=== PATIENT | female | born 1985 | race Hispanic/Latino ===

== ENCOUNTER 2016-07-06 20:00 | Observation (INO) | payer MEDICAID ==
[2016-07-06 20:06] VITALS: O2SAT 100
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
[2016-07-07 01:12] VITALS: BP 128/64; PULSE 99; RESP 18; TEMP 98.1
== END 2016-07-06 23:24 | disposition home or self-care (01) ==
LOC: H.ER 20:00 → H.EROBSV 20:23
PROVIDERS: ADMIT Emergency Medicine; ATTEND Emergency Medicine
DX: F19.10 Other psychoactive substance abuse, uncomplicated (principal)

== ENCOUNTER 2016-07-21 04:31 | Emergency (ER) | payer MEDICAID ==
[2016-07-21 04:42] VITALS: BP 136/88; PULSE 118; RESP 18; TEMP 98.1; O2SAT 100
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
== END 2016-07-21 05:48 | disposition home or self-care (01) ==
LOC: H.ER 04:31
DX: F16.10 Hallucinogen abuse, uncomplicated (principal)

== ENCOUNTER 2016-07-26 14:29 | Observation (INO) | payer MEDICAID ==
[2016-07-26 14:34] VITALS: TEMP 98
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
[2016-07-26 16:27] LABS: HEMATOCRIT 43.8 % (34.0-47.0); MEAN CORPUSCULAR HEMOGLOBIN 28.6 pg (27.0-31.0); MEAN CORPUSCULAR HGB CONC 32.5 g/dL (33.0-37.0); RED CELL DISTRIBUTION WIDTH 13.7 % (11.5-14.5); WHITE BLOOD COUNT 11.6 K/uL (4.8-10.8)
[2016-07-26 16:36] VITALS: BP 140/90; RESP 20
[2016-07-26 16:38] VITALS: PULSE 104
[2016-07-26 16:56] LABS: ALB/GLOB RATIO 1.2 (1.0-2.1); ALCOHOL SERUM < 10 mg/dl (0-10); ALKALINE PHOSPHATASE 76 U/L (38-126); ALT/SGPT 18 U/L (9-52); AST/SGOT 34 U/L (14-36); BILIRUBIN,TOTAL 0.6 mg/dl (0.2-1.3); BLOOD UREA NITROGEN 13 mg/dl (7-17); CARBON DIOXIDE 18 mmol/L (22-30); CHLORIDE 111 mmol/L (98-107); GFR AFRICAN-AMERICAN > 60; GLUCOSE,RANDOM 124 mg/dL (65-105); SODIUM 152 mmol/l (132-148); TOTAL PROTEIN 8.7 G/DL (6.3-8.2)
[2016-07-26 17:11] LABS: RBC URINE 3 /hpf (0-3); URINE BACTERIA MANY (<OCC); URINE BILIRUBIN NEGATIVE (NEGATIVE); URINE BLOOD NEGATIVE (NEGATIVE); URINE COLOR AMBER (YELLOW); URINE GLUCOSE (UA) NEG (Normal); URINE KETONE 80 mg/dL (NEGATIVE); URINE LEUKOCYTE ESTERASE NEG Leu/uL (Negative); URINE PROTEIN 100 mg/dL (NEGATIVE); WBC URINE 1 /hpf (0-5)
[2016-07-26 19:50] VITALS: O2SAT 99
--- NOTE | 2016-07-26 20:17 | ED PDOC ---
- Laboratory Results Result Diagrams: 07/26/16 16:00 07/26/16 16:45 - ECG O2 Sat by Pulse Oximetry: 99 - Progress ED Course And Treament: Case was signed out to display card writer from [employer] [facility] pending crisis eval. Medical Decision Making Medical Decision Making: As per crisis counselor and psychiatrist supervisor sample preparation, Dr. Urena, patient does not meet criteria for admission and is stable for discharge. Disposition - Clinical Impression Clinical Impression: Substance abuse, continuous - POA Present On Arrival: None - Disposition Disposition: Routine/Home Disposition Time: 20:58 Condition: FAIR
== END 2016-07-26 21:30 | disposition home or self-care (01) ==
LOC: H.ER 14:29 → H.EROBSV 15:53
PROVIDERS: ADMIT Emergency Medicine; ATTEND Emergency Medicine
DX: F19.10 Other psychoactive substance abuse, uncomplicated (principal); Z00.8 Encounter for other general examination

== ENCOUNTER 2016-07-31 21:58 | Observation (INO) | payer MEDICAID ==
[2016-07-31] MEDS ORDERED: DiphenhydrAMINE 50 mg/ml Inj ONE (22:00)
[2016-07-31] MEDS ORDERED: Sodium Chloride 0.9% 1,000 ML IV STA (22:05)
[2016-07-31] MEDS ORDERED: DiphenhydrAMINE 50 mg/ml Inj IM STA (22:05)
--- NOTE | 2016-07-31 22:54 | ED PDOC ---
HPI: Psych/Substance Abuse Time Seen by Provider: 07/31/16 22:00 Chief Complaint (Nursing): Psychiatric Evaluation Chief Complaint (Provider): Psychiatric Evaluation ED Caveat: Altered Mental Status (secondary to possible substance abuse), Uncooperative History Per: EMS History/Exam Limitations: clinical condition Involuntary Hold By: None Additional Complaint(s): Tri Parker is a 30 year old female, with a past medical history inclusive of previous substance abuse, who presents to the ED on 07/31/16, via EMS, for a psychiatric evaluation. Per EMS, they had been called to the scene by the patient's father, who not only reported that the patient had not left the house in 4 days (save to go outside to smoke cigarettes), but that he had also suspected her to be using PCP. Upon their arrival, patient was combative on scene and arrives to the ED in restraints. HPI and ROS are limited secondary to patient's clinical/uncooperative condition. Past Medical History Reviewed: Historical Data, Nursing Documentation, Vital Signs Vital Signs: Last Vital Signs Temp Pulse 100 H 07/31/16 22:01 Resp 20 07/31/16 22:01 BP 141/87 07/31/16 22:01 Pulse Ox 97 07/31/16 22:01 - Medical History PMH: Anxiety Denies: Diabetes, Hepatitis, HIV, HTN, Chronic Kidney Disease, Seizures, Sexually Transmitted Disease - Surgical History Surgical History: No Surg Hx - Family History Family History: States: Unknown Family Hx - Living Arrangements Living Arrangements: With Family - Social History Alcohol: Other (yes) Drugs: Methamphetamine (PCP) - Home Medications Home Medications: Ambulatory Orders Medication Instructions Recorded Buspirone HCl 10 mg PO BID 03/19/14 Nitrofurantoin Macrocrystals 100 mg PO BID #9 cap 06/20/15 [Macrobid] Amoxicillin/Clavulanate [Augmentin 1 tab PO BID #14 tab 12/20/15 875 MG-125 MG] - Allergies Allergies/Adverse Reactions: Allergies Allergy/AdvReac Type Severity Reaction Status Date / Time acetaminophen [From Tylenol] Allergy RASH Verified 08/16/15 22:49 Review of Systems Review Of Systems: ROS cannot be obtained secondary to pt's inabilty to answer questions. Psych: Positive for: Other (possible substance abuse) Physical Exam - Reviewed Nursing Documentation Reviewed: Yes Vital Signs Reviewed: Yes - Physical Exam Appears: Positive for: Non-toxic, No Acute Distress Head Exam: Positive for: ATRAUMATIC, NORMOCEPHALIC Skin: Positive for: Normal Color, Warm, Dry Eye Exam: Positive for: Nystagmus (horizontal b/l). Negative for: PERRL ( pupils are dilated b/l) Cardiovascular/Chest: Positive for: Regular Rate, Rhythm. Negative for: Murmur Respiratory: Positive for: Normal Breath Sounds. Negative for: Respiratory Distress Back: Positive for: Normal Inspection Extremity: Positive for: Normal ROM (moving all extremites). Negative for: Deformity (no signs of injury/trauma) Neurologic/Psych: Positive for: Alert, Mood/Affect (patient is combative and not answering questions) - Laboratory Results Result Diagrams: 07/31/16 22:45 07/31/16 22:45 - ECG O2 Sat by Pulse Oximetry: 97 (RA) Pulse Ox Interpretation: Normal Medical Decision Making Medical Decision Makin:00 Initial Impression: drug use As patient presents a danger to both herself and ED staff secondary to her current clinical condition, she will be placed in 4 point restraints and be given both Ativan 2mg IM and Haldol 5mg IM for relief of acute agitation. Initial Plan: * Labs * Alcohol Serum * Acetaminophen * Salicylate * Upreg * Urinalysis * Urine Drug Screen * IV NS 1000ml at 1000mls/hr * Benadryl 50mg IM * 1:1 Observation * Reevaluation 22:16 Patient will be placed within ED observation secondary to both clinical condition and medications administered upon arrival. Pending clinical sobriety, Crisis Evaluation, reevaluation and eventual disposition. Pt. is awake and alert , A&O x 3 w/ steady gait. 0634: Patient cleared by Dr. Urena for discharge with Dx of substance induced mood disorder. Return precautions given. Scribe Attestation: Documented by Catherine Timony, acting as a scribe for Francisco Chandler MD. Provider Scribe Attestation: All medical record entries made by the Scribe were at my direction and personally dictated by me. I have reviewed the chart and agree that the record accurately reflects my personal performance of the history, physical exam, medical decision making, and the department course for this patient. I have also personally directed, reviewed, and agree with the discharge instructions and disposition. ED OBSERVATION Date of observation admission: 07/31/16 Time of observation admission: 22:16 - Observation admission statement Patient is being placed in observation because:: Secondary to clinical condition and medications administered upon arrival in ED. - Goals of Observation Goals of observation are:: Pending clinical sobriety, Crisis Evaluation, reevaluation and eventual disposition. Disposition - Clinical Impression Clinical Impression: Substance induced mood disorder - Patient ED Disposition Is Patient to be Admitted: No - Disposition Disposition: Routine/Home Disposition Time: 22:16 Condition: IMPROVED
[2016-07-31 22:58] LABS: BASO % 0.4 % (0.0-2.0); EOS % 0.5 % (0.0-4.0); HEMATOCRIT 43.2 % (34.0-47.0); LYMPH # 1.7 K/uL (1.0-4.3); LYMPH % 23.4 % (20.0-40.0); MEAN CELL VOLUME 87.2 fl (81.0-99.0); MEAN CORPUSCULAR HEMOGLOBIN 28.6 pg (27.0-31.0); MEAN CORPUSCULAR HGB CONC 32.8 g/dL (33.0-37.0); MONO # 0.5 K/uL (0.0-0.8); MONO % 7.1 % (0.0-10.0); NEUT # 5.1 K/uL (1.8-7.0); NEUT % 68.6 % (50.0-75.0); NRBC % 0.1 % (0.0-0.0); RED CELL DISTRIBUTION WIDTH 13.5 % (11.5-14.5); WHITE BLOOD COUNT 7.4 K/uL (4.8-10.8)
[2016-07-31 23:08] LABS: ALCOHOL SERUM < 10 mg/dl (0-10); BLOOD UREA NITROGEN 11 mg/dl (7-17); CALCIUM 9.5 mg/dL (8.4-10.2); CARBON DIOXIDE 29 mmol/L (22-30); CHLORIDE 102 mmol/L (98-107); GFR AFRICAN-AMERICAN > 60; GLUCOSE,RANDOM 96 mg/dL (65-105); POTASSIUM 4.3 MMOL/L (3.6-5.0); SODIUM 144 mmol/l (132-148)
[2016-08-01 01:13] LABS: RBC URINE 2 /hpf (0-3); URINE BACTERIA MANY (<OCC); URINE BILIRUBIN NEGATIVE (NEGATIVE); URINE BLOOD NEGATIVE (NEGATIVE); URINE COLOR YELLOW (YELLOW); URINE GLUCOSE (UA) NEG (Normal); URINE KETONE 20 mg/dL (NEGATIVE); URINE LEUKOCYTE ESTERASE NEG Leu/uL (Negative); URINE PROTEIN NEGATIVE (NEGATIVE); WBC URINE 3 /hpf (0-5)
[2016-08-01 04:00] VITALS: RESP 18; TEMP 98.2
[2016-08-01 07:25] VITALS: BP 135/89; PULSE 79; O2SAT 98
== END 2016-08-01 07:30 | disposition home or self-care (01) ==
LOC: H.ER 21:58 → H.EROBSV 22:16
PROVIDERS: ADMIT Emergency Medicine; ATTEND Emergency Medicine
DX: F19.14 Other psychoactive substance abuse with psychoactive substance-induced mood disorder (principal); F41.9 Anxiety disorder, unspecified; Z78.1 Physical restraint status; F17.210 Nicotine dependence, cigarettes, uncomplicated; Z88.6 Allergy status to analgesic agent

== ENCOUNTER 2016-11-16 23:33 | Emergency (ER) | payer MEDICAID ==
[2016-11-16 23:37] VITALS: BP 144/86; PULSE 118; RESP 18; TEMP 98.9; O2SAT 99
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
== END 2016-11-17 00:49 | disposition home or self-care (01) ==
LOC: H.ER 23:33
DX: S09.90XA Unspecified injury of head, initial encounter (principal); X99.0XXA Assault by sharp glass, initial encounter; Y92.89 Other specified places as the place of occurrence of the external cause; F41.9 Anxiety disorder, unspecified

== ENCOUNTER 2016-12-01 12:10 | Emergency (ER) | payer MEDICAID ==
[2016-12-01 12:19] VITALS: BP 133/83; PULSE 105; RESP 20; TEMP 98; O2SAT 98
--- NOTE | 2016-12-01 12:33 | ED PDOC ---
HPI: CCC, URI, Sore Throat Time Seen by Provider: 12/01/16 12:19 Chief Complaint (Nursing): ENT Problem Chief Complaint (Provider): sore throat History Per: Patient Past Medical History Vital Signs: Last Vital Signs Temp 98 F 12/01/16 12:17 Pulse 105 H 12/01/16 12:17 Resp 20 12/01/16 12:17 BP 133/83 12/01/16 12:17 Pulse Ox 98 12/01/16 12:17 - Medical History PMH: Anxiety Denies: Diabetes, Hepatitis, HIV, HTN, Chronic Kidney Disease, Seizures, Sexually Transmitted Disease - Family History Family History: States: Unknown Family Hx - Home Medications Home Medications: Ambulatory Orders Medication Instructions Recorded Buspirone HCl 10 mg PO BID 03/19/14 Nitrofurantoin Macrocrystals 100 mg PO BID #9 cap 06/20/15 [Macrobid] Amoxicillin/Clavulanate [Augmentin 1 tab PO BID #14 tab 12/20/15 875 MG-125 MG] Azithromycin [Zithromax] 250 mg PO DAILY #6 tab 12/01/16 Ibuprofen [Motrin] 600 mg PO Q6 PRN #15 tab 12/01/16 - Allergies Allergies/Adverse Reactions: Allergies Allergy/AdvReac Type Severity Reaction Status Date / Time acetaminophen [From Tylenol] Allergy RASH Verified 12/01/16 12:19 - ECG O2 Sat by Pulse Oximetry: 98 Disposition - Clinical Impression Clinical Impression: Pharyngitis - Patient ED Disposition Is Patient to be Admitted: No Counseled Patient/Family Regarding: Diagnosis, Need For Followup, Rx Given - Disposition Referrals: [facility] [Outside] Disposition: Routine/Home Disposition Time: 12:30 Condition: STABLE Additional Instructions: Take rx meds as directed. Follow up with clinic in 2-3 days. Prescriptions: Azithromycin [Zithromax] 250 mg PO DAILY #6 tab Ibuprofen [Motrin] 600 mg PO Q6 PRN #15 tab PRN Reason: Pain, Moderate (4-7) Instructions: Pharyngitis (ED) Forms: [employer] (Japanese)
--- NOTE | 2016-12-01 12:35 | ED PDOC ---
HPI: CCC, URI, Sore Throat Time Seen by Provider: 12/01/16 12:19 Chief Complaint (Nursing): ENT Problem Chief Complaint (Provider): Throat pain History Per: Patient History/Exam Limitations: no limitations Onset/Duration Of Symptoms: Days (x2) Current Symptoms Are (Timing): Still Present Additional Complaint(s): Tri Parker is a 30 year old female who presents to the emergency department with a complaint of throat pain ongoing for 2 days. Denied any fever , chills, or sick contacts. PMD: [facility] Past Medical History Reviewed: Historical Data, Nursing Documentation, Vital Signs Vital Signs: Last Vital Signs Temp 98 F 12/01/16 12:17 Pulse 105 H 12/01/16 12:17 Resp 20 12/01/16 12:17 BP 133/83 12/01/16 12:17 Pulse Ox 98 12/01/16 12:40 - Medical History PMH: Anxiety - Surgical History Surgical History: No Surg Hx - Family History Family History: States: No Known Family Hx - Living Arrangements Living Arrangements: With Family - Social History Current smoker - smoking cessation education provided: Yes Alcohol: Occasional Drugs: Other (PCP) - Home Medications Home Medications: Ambulatory Orders Medication Instructions Recorded Buspirone HCl 10 mg PO BID 03/19/14 Nitrofurantoin Macrocrystals 100 mg PO BID #9 cap 06/20/15 [Macrobid] Amoxicillin/Clavulanate [Augmentin 1 tab PO BID #14 tab 12/20/15 875 MG-125 MG] Azithromycin [Zithromax] 250 mg PO DAILY #6 tab 12/01/16 Ibuprofen [Motrin] 600 mg PO Q6 PRN #15 tab 12/01/16 - Allergies Allergies/Adverse Reactions: Allergies Allergy/AdvReac Type Severity Reaction Status Date / Time acetaminophen [From Tylenol] Allergy RASH Verified 12/01/16 12:19 Review of Systems ROS Statement: Except As Marked, All Systems Reviewed And Found Negative Constitutional: Negative for: Fever, Chills ENT: Positive for: Throat Pain, Throat Swelling Respiratory: Negative for: Cough Gastrointestinal: Negative for: Vomiting Neurological: Negative for: Headache, Dizziness Physical Exam - Reviewed Nursing Documentation Reviewed: Yes Vital Signs Reviewed: Yes - Physical Exam Appears: Positive for: Well, Non-toxic, No Acute Distress Head Exam: Positive for: ATRAUMATIC, NORMAL INSPECTION, NORMOCEPHALIC Skin: Positive for: Normal Color ENT: Positive for: TM Is/Are (normal bilaterally), Pharyngeal Erythema, Tonsillar Exudate (scant bilaterally), Tonsillar Swelling (bilateral). Negative for: Normal ENT Inspection Cardiovascular/Chest: Positive for: Regular Rate, Rhythm Respiratory: Positive for: Normal Breath Sounds. Negative for: Respiratory Distress Extremity: Positive for: Normal ROM Neurologic/Psych: Positive for: Alert, net solutions architect II-XII, Oriented - ECG O2 Sat by Pulse Oximetry: 98 (RA) Pulse Ox Interpretation: Normal Medical Decision Making Medical Decision Making: Initial Impression: Pharyngitis Plan: Treat empirically given presentation, rx motrin and zithromax Time: 1230 --Upon provider evaluation, patient is medically stable and requires no further treatment in the ED at this time. Patient will be discharged home with Rx for Zithromax 250mg and Motrin 600mg. Counseling was provided and all questions were answered regarding diagnosis and need for follow up with [facility]. There is agreement to discharge plan. Return if symptoms persist or worsen. Clinical Impression: Pharyngitis Scribe Attestation: Documented by Kelsi Welch, acting as a scribe for Sybil Mckeon PA-C. Provider Scribe Attestation: All medical record entries made by the Scribe were at my direction and personally dictated by me. I have reviewed the chart and agree that the record accurately reflects my personal performance of the history, physical exam, medical decision making, and the department course for this patient. I have also personally directed, reviewed, and agree with the discharge instructions and disposition. Disposition - Clinical Impression Clinical Impression: Pharyngitis - Patient ED Disposition Is Patient to be Admitted: No Doctor Will See Patient In The: Office Counseled Patient/Family Regarding: Diagnosis, Rx Given - Disposition Referrals: [facility] [Outside] Disposition: Routine/Home Disposition Time: 12:30 Condition: STABLE Additional Instructions: Take rx meds as directed. Follow up with clinic in 2-3 days. Prescriptions: Azithromycin [Zithromax] 250 mg PO DAILY #6 tab Ibuprofen [Motrin] 600 mg PO Q6 PRN #15 tab PRN Reason: Pain, Moderate (4-7) Instructions: Pharyngitis (ED) Forms: [employer] (Italian)
== END 2016-12-01 12:43 | disposition home or self-care (01) ==
LOC: H.ER 12:10
DX: J02.9 Acute pharyngitis, unspecified (principal)

== ENCOUNTER 2016-12-18 10:46 | Observation (INO) | payer MEDICAID ==
[2016-12-18 12:06] LABS: BASO % 0.3 % (0.0-2.0); EOS # 0.1 K/uL (0.0-0.7); EOS % 0.6 % (0.0-4.0); HEMATOCRIT 45.1 % (34.0-47.0); LYMPH # 1.4 K/uL (1.0-4.3); LYMPH % 9.4 % (20.0-40.0); MEAN CELL VOLUME 88.8 fl (81.0-99.0); MEAN CORPUSCULAR HEMOGLOBIN 28.9 pg (27.0-31.0); MEAN CORPUSCULAR HGB CONC 32.5 g/dL (33.0-37.0); MEAN PLATELET VOLUME 8.4 fl (7.2-11.7); MONO # 0.8 K/uL (0.0-0.8); MONO % 5.6 % (0.0-10.0); NEUT # 12.2 K/uL (1.8-7.0); NEUT % 84.1 % (50.0-75.0); PLATELET COUNT 245 K/uL (130-400); RED CELL DISTRIBUTION WIDTH 13.8 % (11.5-14.5); WHITE BLOOD COUNT 14.5 K/uL (4.8-10.8)
[2016-12-18 12:24] LABS: ALB/GLOB RATIO 1.6 (1.0-2.1); ALCOHOL SERUM < 10 mg/dl (0-10); ALKALINE PHOSPHATASE 66 U/L (38-126); ALT/SGPT 35 U/L (9-52); AST/SGOT 47 U/L (14-36); BILIRUBIN,TOTAL 0.4 mg/dl (0.2-1.3); BLOOD UREA NITROGEN 11 mg/dl (7-17); CALCIUM 9.7 mg/dL (8.4-10.2); CARBON DIOXIDE 18 mmol/L (22-30); CHLORIDE 106 mmol/L (98-107); GFR AFRICAN-AMERICAN > 60; GLUCOSE,RANDOM 185 mg/dL (65-105); POTASSIUM 4.1 MMOL/L (3.6-5.0); SODIUM 141 mmol/l (132-148); TOTAL PROTEIN 7.8 G/DL (6.3-8.2)
[2016-12-18 12:29] VITALS: BP 120/79; PULSE 112; RESP 18; O2SAT 97
--- NOTE | 2016-12-18 12:33 | ED PDOC ---
HPI: Psych/Substance Abuse Time Seen by Provider: 12/18/16 10:47 Chief Complaint (Nursing): Substance Abuse Chief Complaint (Provider): Substance abuse ED Caveat: Acuity of Condition History Per: EMS Associated Symptoms: Agitation Additional History Per: Law Enforcement Additional Complaint(s): Tri Parker is a 31 year old female, with a past history of substance abuse and anxiety, who was brought to the emergency department by [place] [employer] and EMS who found the patient outside a building disoriented, confused, and combative. Patient apparently took sagar dust. Patient is agitated and violent. Unable to obtain full HPI due to the current condition of patient PMD: None provided Past Medical History Reviewed: Historical Data, Nursing Documentation, Vital Signs Vital Signs: Last Vital Signs Temp Pulse 67 12/18/16 11:04 Resp BP 159/115 H 12/18/16 11:04 Pulse Ox - Medical History PMH: Anxiety Denies: Diabetes, Hepatitis, HIV, HTN, Chronic Kidney Disease, Seizures, Sexually Transmitted Disease - Surgical History Surgical History: No Surg Hx - Family History Family History: States: Unknown Family Hx - Social History Current smoker - smoking cessation education provided: Yes (Heavy smoker >10 cigarettes daily for 10 yrs) Alcohol: > 2 Drinks/Day Drugs: Other (PCP) - Home Medications Home Medications: Ambulatory Orders Medication Instructions Recorded Buspirone HCl 10 mg PO BID 03/19/14 Nitrofurantoin Macrocrystals 100 mg PO BID #9 cap 06/20/15 [Macrobid] Amoxicillin/Clavulanate [Augmentin 1 tab PO BID #14 tab 12/20/15 875 MG-125 MG] Azithromycin [Zithromax] 250 mg PO DAILY #6 tab 12/01/16 Ibuprofen [Motrin] 600 mg PO Q6 PRN #15 tab 12/01/16 - Allergies Allergies/Adverse Reactions: Allergies Allergy/AdvReac Type Severity Reaction Status Date / Time acetaminophen [From Tylenol] Allergy RASH Verified 12/01/16 12:19 Review of Systems ROS Statement: Except As Marked, All Systems Reviewed And Found Negative Psych: Positive for: Other (agitated and combative) Physical Exam - Reviewed Nursing Documentation Reviewed: Yes Vital Signs Reviewed: Yes - Physical Exam Appears: Positive for: Well, No Acute Distress Head Exam: Positive for: ATRAUMATIC, NORMAL INSPECTION, NORMOCEPHALIC Skin: Positive for: Normal Color, Warm, Dry Eye Exam: Positive for: Normal appearance ENT: Positive for: Normal ENT Inspection Neck: Positive for: Normal Cardiovascular/Chest: Positive for: Regular Rate, Rhythm. Negative for: Murmur Respiratory: Positive for: Normal Breath Sounds. Negative for: Respiratory Distress Gastrointestinal/Abdominal: Positive for: Normal Exam, Bowel Sounds, Soft Extremity: Positive for: Normal ROM Neurologic/Psych: Positive for: Alert, Oriented - Laboratory Results Result Diagrams: 12/18/16 12:00 12/18/16 12:00 Medical Decision Making Medical Decision Making: Initial Impression: Substance abuse, agitation/combative Initial Plan: --Acetaminophen --Alcohol serum --Comp Metabolic Panel --Drug screen, urine --Salicylate --Urine dipstick --Urine --CBC w/ differential --Ativan 2 mg IM --1:1 Observation --Urinalysis --Patient admitted to ED-OBS for drug intoxication Scribe Attestation: Documented by Anuj Baig & Marlene Hidalgo, acting as a scribe for Bryan Oneil MD Provider Scribe Attestation: All medical record entries made by the Scribe were at my direction and personally dictated by me. I have reviewed the chart and agree that the record accurately reflects my personal performance of the history, physical exam, medical decision making, and the department course for this patient. I have also personally directed, reviewed, and agree with the discharge instructions and disposition. ED OBSERVATION Date of observation admission: 12/18/16 Time of observation admission: 11:22 - Observation admission statement Patient is being placed in observation because:: Drug intoxication - Goals of Observation Goals of observation are:: Clinical sobriety - Progress Note Progress Note: 12/18/16 Time: 11:22 pt required restraints and sedation (ativan) due to escalating agitation and concern for patient safety and ER staff safety. pt placed on a 1:1 for observation. --Patient is resting comfortably. Vital signs stable. Time: 12:50 --Patient is resting comfortably. Vital signs stable. Time: 14:20 --Patient is resting comfortably. Vital signs stable. Time: 15:50 --Currently patient is medically cleared for psych eval --Noted to have marijuana and PCP in urine --Crisis evaluation completed, patient is cleared for discharge home, with diagnosis of substance abuse as per psychiatrist dr barger discussed discharge plan with patient and answered questions 12/19/16 20:50 12/19/16 20:56 Disposition - Clinical Impression Clinical Impression: Polysubstance abuse - Patient ED Disposition Is Patient to be Admitted: No Counseled Patient/Family Regarding: Studies Performed, Diagnosis, Need For Followup - Disposition Disposition: Routine/Home Disposition Time: 11:22 Condition: IMPROVED
[2016-12-18 13:33] LABS: EOSINOPHIL 1 % (0-7); NEUTROPHIL 84 % (42-75); TOTAL CELLS COUNTED 100
[2016-12-18 13:35] LABS: LARGE PLATELETS PRESENT
[2016-12-18 14:02] LABS: RBC URINE 3 /hpf (0-3); URINE BILIRUBIN NEGATIVE (NEGATIVE); URINE BLOOD NEGATIVE (NEGATIVE); URINE COLOR YELLOW (YELLOW); URINE GLUCOSE (UA) 150 mg/dL (Normal); URINE KETONE NEGATIVE (NEGATIVE); URINE LEUKOCYTE ESTERASE NEG Leu/uL (Negative); URINE PROTEIN 100 mg/dL (NEGATIVE); URINE UROBILINOGEN 0.2-1.0 mg/dL (0.2-1.0); WBC URINE 2 /hpf (0-5)
== END 2016-12-18 16:20 | disposition home or self-care (01) ==
LOC: H.ER 10:46 → H.EROBSV 11:22
PROVIDERS: ADMIT Emergency Medicine; ATTEND Emergency Medicine
DX: F19.10 Other psychoactive substance abuse, uncomplicated (principal); F17.210 Nicotine dependence, cigarettes, uncomplicated; F41.9 Anxiety disorder, unspecified; R41.0 Disorientation, unspecified; R45.1 Restlessness and agitation; Z78.1 Physical restraint status; F12.10 Cannabis abuse, uncomplicated; F16.10 Hallucinogen abuse, uncomplicated
CPT/HCPCS: 36415; 80053; 80320; 80324; 80329; 80345; 80346; 80349; 80353; 80358; 80361; 81003; 81025; 82948; 83992; 85025; 96372; 99284; G0378; J2060

== ENCOUNTER 2016-12-24 14:36 | Emergency (ER) | payer MEDICAID ==
[2016-12-24 14:49] VITALS: BP 119/99; PULSE 133; RESP 18; TEMP 99.3; O2SAT 100
--- NOTE | 2016-12-24 14:58 | ED PDOC ---
HPI: Psych/Substance Abuse Time Seen by Provider: 12/24/16 14:51 Chief Complaint (Nursing): Substance Abuse Chief Complaint (Provider): substance Additional Complaint(s): 31yo F in ED well known to ER for medical and pysch clearance for incarceration. pt offers no medical complaints. Past Medical History Reviewed: Historical Data, Nursing Documentation, Vital Signs Vital Signs: Last Vital Signs Temp 99.3 F 12/24/16 14:48 Pulse 133 H 12/24/16 14:48 Resp 18 12/24/16 14:48 BP 119/99 H 12/24/16 14:48 Pulse Ox 100 12/24/16 14:48 - Medical History PMH: Anxiety Denies: Diabetes, Hepatitis, HIV, HTN, Chronic Kidney Disease, Seizures, Sexually Transmitted Disease - Family History Family History: States: Unknown Family Hx - Home Medications Home Medications: Ambulatory Orders Medication Instructions Recorded Buspirone HCl 10 mg PO BID 03/19/14 Nitrofurantoin Macrocrystals 100 mg PO BID #9 cap 06/20/15 [Macrobid] Amoxicillin/Clavulanate [Augmentin 1 tab PO BID #14 tab 12/20/15 875 MG-125 MG] Azithromycin [Zithromax] 250 mg PO DAILY #6 tab 12/01/16 Ibuprofen [Motrin] 600 mg PO Q6 PRN #15 tab 12/01/16 - Allergies Allergies/Adverse Reactions: Allergies Allergy/AdvReac Type Severity Reaction Status Date / Time acetaminophen [From Tylenol] Allergy RASH Verified 12/01/16 12:19 Review of Systems ROS Statement: Except As Marked, All Systems Reviewed And Found Negative Constitutional: Negative for: Fever, Chills Physical Exam - Reviewed Nursing Documentation Reviewed: Yes Vital Signs Reviewed: Yes - Physical Exam Appears: Positive for: No Acute Distress. Negative for: Non-toxic (PT under the influence) Head Exam: Positive for: ATRAUMATIC, NORMAL INSPECTION, NORMOCEPHALIC Skin: Positive for: Normal Color, Warm, DRY Eye Exam: Positive for: Normal appearance, EOMI. Negative for: PERRL (pinpoint pupils) ENT: Positive for: Normal ENT Inspection Cardiovascular/Chest: Positive for: Regular Rate, Rhythm Respiratory: Positive for: CNT, Normal Breath Sounds Gastrointestinal/Abdominal: Positive for: Normal Exam, Bowel Sounds, Soft Back: Positive for: Normal Inspection Extremity: Positive for: Normal ROM Neurologic/Psych: Positive for: Alert, Oriented - ECG O2 Sat by Pulse Oximetry: 100 - Progress ED Course And Treament: will get BAL and crisis eval. Medical Decision Making Medical Decision Making: PT is cleared by crisis and is medciically stable at this time for d.c Disposition - Clinical Impression Clinical Impression: Medical clearance for incarceration, Substance abuse - Patient ED Disposition Is Patient to be Admitted: No Counseled Patient/Family Regarding: Need For Followup - Disposition Disposition: Routine/Home Disposition Time: 15:16 Condition: STABLE Additional Instructions: Tri Parker is medically and psychiatrically stable for incarceration. Forms: [employer] (Maltese)
== END 2016-12-24 15:21 | disposition home or self-care (01) ==
LOC: H.ER 14:36
DX: F19.10 Other psychoactive substance abuse, uncomplicated (principal); F41.9 Anxiety disorder, unspecified

== ENCOUNTER 2017-01-04 13:45 | Emergency (ER) | payer MEDICAID ==
[2017-01-04 14:11] VITALS: BP 113/75; PULSE 119; RESP 18; TEMP 99.1; O2SAT 99
[2017-01-04] MEDS ORDERED: Fluorescein 1 mg Ophthalmic Strip ONE (14:21)
--- NOTE | 2017-01-04 14:34 | ED PDOC ---
HPI: Eye Injury/Pain Time Seen by Provider: 01/04/17 14:09 Chief Complaint (Nursing): Eye Problem Chief Complaint (Provider): Bilateral eye irritation History Per: Patient History/Exam Limitations: no limitations Onset/Duration Of Symptoms: Days (x2) Current Symptoms Are (Timing): Still Present Additional Complaint(s): Tri is a 31 y/o female who presents to the ED complaining of bilateral eye irritation associated with burning, tearing, and itchiness, since yesterday. Patient wore contacts yesterday for cosmetic purposes, without using contact solution. She took them out yesterday night when her eyes started feeling increasingly dry. This morning upon waking up, her eye irritation began progressively worsening and now she reports light sensitivity and lots of tearing. Denies foreign body sensation, trauma, and history of diabetes. Patient is also requesting a warehouse associate driver referral. PMD: Dr. Victoria Morgan MD Past Medical History Reviewed: Historical Data, Nursing Documentation, Vital Signs Vital Signs: Last Vital Signs Temp 99.1 F 01/04/17 14:07 Pulse 119 H 01/04/17 14:07 Resp 18 01/04/17 14:07 BP 113/75 01/04/17 14:07 Pulse Ox 99 01/04/17 14:07 - Medical History PMH: Anxiety Denies: Diabetes, Hepatitis, HIV, HTN, Chronic Kidney Disease, Seizures, Sexually Transmitted Disease - Surgical History Surgical History: No Surg Hx - Family History Family History: States: Unknown Family Hx - Social History Current smoker - smoking cessation education provided: Yes (heavy) Alcohol: Social Drugs: Other (PCP) - Home Medications Home Medications: Ambulatory Orders Medication Instructions Recorded Buspirone HCl 10 mg PO BID 03/19/14 Nitrofurantoin Macrocrystals 100 mg PO BID #9 cap 06/20/15 [Macrobid] Amoxicillin/Clavulanate [Augmentin 1 tab PO BID #14 tab 12/20/15 875 MG-125 MG] Azithromycin [Zithromax] 250 mg PO DAILY #6 tab 12/01/16 Ibuprofen [Motrin] 600 mg PO Q6 PRN #15 tab 12/01/16 Tobramycin 0.3% [Tobrex] 1 applic BOTHEYES Q8 #1 tube 01/04/17 - Allergies Allergies/Adverse Reactions: Allergies Allergy/AdvReac Type Severity Reaction Status Date / Time acetaminophen [From Tylenol] Allergy RASH Verified 12/01/16 12:19 Review of Systems ROS Statement: Except As Marked, All Systems Reviewed And Found Negative Eyes: Positive for: Pain, Other (Tearing) Physical Exam - Reviewed Nursing Documentation Reviewed: Yes Vital Signs Reviewed: Yes - Physical Exam Appears: Positive for: Well, Non-toxic, No Acute Distress Head Exam: Positive for: ATRAUMATIC, NORMAL INSPECTION, NORMOCEPHALIC Eye Exam: Positive for: EOMI (without pain), PERRL, Conjunctival injection ( moderate), Other (mild chemosis bilaterally. No fluorescein uptake.) Neurologic/Psych: Positive for: Alert, Oriented - ECG O2 Sat by Pulse Oximetry: 99 (RA) Pulse Ox Interpretation: Normal Medical Decision Making Medical Decision Making: Time: 14:10 Initial Plan: --Eye examination w/ fluorescein Clinical Impression: Conjunctivitis Upon provider evaluation patient is medically stable, and requires no further treatment in the ED at this time. Patient will be discharged home with Rx for Tobrex eye drops. Counseling was provided and all questions were answered regarding diagnosis and need for follow up with Ophthalmology. Patient also given referral to [facility] per request. There is agreement to discharge plan. Return if symptoms persist or worsen. Scribe Attestation: Documented by Marlene Hidalgo, acting as a scribe for Macario Bartholomew PA-C Provider Scribe Attestation: All medical record entries made by the Scribe were at my direction and personally dictated by me. I have reviewed the chart and agree that the record accurately reflects my personal performance of the history, physical exam, medical decision making, and the department course for this patient. I have also personally directed, reviewed, and agree with the discharge instructions and disposition. Disposition - Clinical Impression Clinical Impression: Conjunctivitis - Patient ED Disposition Is Patient to be Admitted: No Counseled Patient/Family Regarding: Studies Performed, Diagnosis, Need For Followup, Rx Given - Disposition Referrals: [facility]] Mukund Blanchard MD [Staff Provider] - Disposition: Routine/Home Disposition Time: 14:30 Condition: STABLE Additional Instructions: FOLLOW UP WITH YOUR DOMESTIC LAUNDRY WORKER AND YOUR CORRECTIONAL COOK FOR FURTHER EVALUATION Prescriptions: Tobramycin 0.3% [Tobrex] 1 applic BOTHEYES Q8 #1 tube Instructions: Conjunctivitis (ED) Forms: [employer] (Maltese) Print Language: TURKMEN
== END 2017-01-04 14:35 | disposition home or self-care (01) ==
LOC: H.ER 13:45
DX: H10.9 Unspecified conjunctivitis (principal)

== ENCOUNTER 2017-01-05 06:13 | Observation (INO) | payer MEDICAID ==
[2017-01-05 06:48] VITALS: TEMP 97.8; O2SAT 99
[2017-01-05] MEDS ORDERED: Lidocaine/Epi 1% 1:100000 20 ML IJ ONE (07:59)
[2017-01-05] MEDS ORDERED: Lidocaine 2% w Epi 1:100,000 Inj IJ ONE (08:01)
[2017-01-05] MEDS ORDERED: Lidocaine 2% Jelly (Uro-Jet) ONE (08:02)
--- NOTE | 2017-01-05 08:37 | ED PDOC ---
HPI: Head Injury Time Seen by Provider: 01/05/17 07:55 Chief Complaint (Nursing): Trauma Chief Complaint (Provider): Trauma History Per: Patient History/Exam Limitations: no limitations Injury Occurred (Timing): Just Before Arrival Patient States: Fell Striking Head Severity: Mild Loss Of Consciousness: Unsure Additional History Per: Patient Additional Complaint(s): Tri is a 31 y/o female who presents to the ED for evaluation of a lip laceration, sustained just prior to arrival. States that she fell last night, and struck face on floor. Laceration is located on right lower lip. She reports a mild headache and neck pain, worse with movement. No blurred vision, numbness , tingling, weakness, chest pain, or shortness of breath. pt has a long history with multiple ed visits for drug intoxication. PMD: Unknown Past Medical History Reviewed: Historical Data, Nursing Documentation, Vital Signs Vital Signs: Last Vital Signs Temp 97.8 F 01/05/17 06:45 Pulse 88 01/05/17 06:45 Resp 16 01/05/17 06:45 BP 110/72 01/05/17 06:45 Pulse Ox 99 01/05/17 06:45 - Medical History PMH: Anxiety Denies: Diabetes, Hepatitis, HIV, HTN, Chronic Kidney Disease, Seizures, Sexually Transmitted Disease - Family History Family History: States: Unknown Family Hx - Living Arrangements Living Arrangements: With Family - Home Medications Home Medications: Ambulatory Orders Medication Instructions Recorded Buspirone HCl 10 mg PO BID 03/19/14 Nitrofurantoin Macrocrystals 100 mg PO BID #9 cap 06/20/15 [Macrobid] Amoxicillin/Clavulanate [Augmentin 1 tab PO BID #14 tab 12/20/15 875 MG-125 MG] Azithromycin [Zithromax] 250 mg PO DAILY #6 tab 12/01/16 Ibuprofen [Motrin] 600 mg PO Q6 PRN #15 tab 12/01/16 Tobramycin 0.3% [Tobrex] 1 applic BOTHEYES Q8 #1 tube 01/04/17 - Allergies Allergies/Adverse Reactions: Allergies Allergy/AdvReac Type Severity Reaction Status Date / Time acetaminophen [From Tylenol] Allergy RASH Verified 01/05/17 06:44 Review of Systems ROS Statement: Except As Marked, All Systems Reviewed And Found Negative Eyes: Negative for: Vision Change Cardiovascular: Negative for: Chest Pain Respiratory: Negative for: Cough, Shortness of Breath Gastrointestinal: Negative for: Nausea, Vomiting, Abdominal Pain Musculoskeletal: Positive for: Neck Pain Neurological: Positive for: Headache. Negative for: Weakness, Numbness (and tingling), Incoordination, Change in Speech, Confusion, Altered Mental Status, Dizziness Physical Exam - Reviewed Nursing Documentation Reviewed: Yes Vital Signs Reviewed: Yes - Physical Exam Appears: Positive for: Non-toxic, No Acute Distress Head Exam: Positive for: ATRAUMATIC, NORMOCEPHALIC Skin: Positive for: Normal Color (with 1 cm laceration noted at the right inner lip. 2 cm laceration of the right lower lip, doesn't cross madi border. ) , Warm, Dry Eye Exam: Positive for: Normal appearance, EOMI, PERRL ENT: Positive for: Pharynx Is (clear,mmm), TM Is/Are (nml), Other (no septal hematoma no brusing or tenderness, inner left lower lip with 2 cm lac and outer left lip laceration 2 cm not through madi border.) Neck: Positive for: Normal (with no meningeal signs), Supple Cardiovascular/Chest: Positive for: Regular Rate, Rhythm, Chest Non Tender. Negative for: Edema, Gallop, Murmur, Bradycardia, Tachycardia Respiratory: Positive for: Normal Breath Sounds (Clear to auscultation bilaterally). Negative for: Decreased Breath Sounds, Accessory Muscle Use, Crackles, Rales, Rhonchi, Stridor, Wheezing, Respiratory Distress Pulses-Radial (L): 2+ Pulses-Radial (R): 2+ Gastrointestinal/Abdominal: Positive for: Normal Exam, Bowel Sounds, Soft. Negative for: Tenderness Back: Positive for: Normal Inspection. Negative for: L CVA Tenderness, R CVA Tenderness Extremity: Positive for: Normal ROM. Negative for: Deformity Neurologic/Psych: Positive for: Alert, health assistant II-XII (intact), Oriented, Cerebellar Tests (normal), Gait (steady). Negative for: Motor/Sensory Deficits - ECG O2 Sat by Pulse Oximetry: 99 (RA) Pulse Ox Interpretation: Normal - Progress Re-evaluation Time: 12:00 Condition: Improved Medical Decision Making Medical Decision Making: Time: 7:59 Initial Plan: --CT scans ordered to r/o fracture --Will repair lacerations using Lidocaine w/ epinephrine 1% Time: 8:54 CT Head: FINDINGS: HEMORRHAGE: No intracranial hemorrhage. BRAIN: No mass effect or edema. No atrophy or chronic microvascular ischemic changes. VENTRICLES: Unremarkable. No hydrocephalus. CALVARIUM: Unremarkable. PARANASAL SINUSES: Unremarkable as visualized. No significant inflammatory changes. MASTOID AIR CELLS: Unremarkable as visualized. No inflammatory changes. OTHER FINDINGS: None. IMPRESSION: Normal CT of the Head. Time: 9:42 CT Maxillofacial: FINDINGS: NASAL BONES: The current study reveals tiny densities adjacent to the anterior aspect of the anterior nasal spine which could represent anatomic variant versus tiny avulsion fractures. Clinical correlation with physical exam and history. There is soft tissue swelling of the upper lip and lower lip extending inferolaterally overlying the mandible right greater than left. . Nasal bone appears grossly intact. There is mild leftward deviation of the nasal septum . The remaining maxillofacial skeletal structures appear intact without evidence of acute the displaced fractures. . Mandible also intact. The bony orbits intact. . The globes intact and lenses appropriately located. There are no retrobulbar hemorrhages or collections. There does appear to be exophthalmos. Clinical correlation of with ophthalmologic examination recommended. Optic nerves and extraocular musculature appear grossly unremarkable. The visualized paranasal sinuses are relatively well-developed. No fluid levels seen to suggest acute hemorrhage or sinusitis. Linear and polypoid like mucosal thickening present within both maxillary antra. There is also mild mucosal thickening within the ethmoid air complex extending superiorly into the frontal sinus. Questionable mild left frontal soft tissue swelling IMPRESSION: Small densities within soft tissues adjacent to the anterior aspect of the anterior nasal spine could represent paul normal variation versus tiny avulsion fractures. Clinic correlation with history recommended. Facial soft tissue swelling involving the upper lip . There is also soft tissue swelling involving the soft tissues of the lower lip right greater than left extending over the mandible. . Mucoperiosteal inflammatory changes within the maxillary ethmoid and frontal sinuses. . Findings suggest exophthalmos. Clinical correlation with ophthalmologic examination. Time: 9:47 CT C-Spine: FINDINGS: VERTEBRAE: Current study reveals no acute compression fractures no retropulsed fragments. Vertebral bodies exhibit normal stature and alignment. Facets normally aligned. DISCS/SPINAL CANAL/NEURAL FORAMINA: No significant central canal or neural foraminal stenosis. Discs heights are grossly preserved. PARASPINAL SOFT TISSUES: Prevertebral and paraspinal soft tissues unremarkable. Note made of multiple bilateral cervical lymph nodes nonspecific. OTHER FINDINGS: Mild biapical pleural thickening and parenchymal scarring. IMPRESSION: No evidence of acute fractures. Time: 11:30 Clinical Impression: Nasal bone fracture Upon provider reevaluation patient is medically stable, and requires no further treatment in the ED at this time. Patient will be discharged home. Counseling was provided and all questions were answered regarding diagnosis and need for follow up with PMD for wound check. There is agreement to discharge plan. Return if symptoms persist or worsen. Scribe Attestation: Documented by Marlene Hidalgo, acting as a scribe for Damián Moreira MD Provider Scribe Attestation: All medical record entries made by the Scribe were at my direction and personally dictated by me. I have reviewed the chart and agree that the record accurately reflects my personal performance of the history, physical exam, medical decision making, and the department course for this patient. I have also personally directed, reviewed, and agree with the discharge instructions and disposition. Procedures - Laceration/Wound Repair Laceration repair Wound Length (cm): 2 (at right lower lip, 1 cm at inner lip) Wound's Depth, Shape: superficial, linear Anesthesia: Lidocaine w/ Epi Volume Anesthetic (ccs): 1 Wound Repaired With: Sutures Suture Size/Type: 6:0 (6:0 micro for inside), nylon (6:0 nylon for outside) Number of Sutures: 3 (3 placed to right lower lip) Layer Closure?: Yes Deep Layer Suture Size/Type: 6:0 (vicryl) Number Deep Layer Sutures: 3 Wound Complexity: Intermediate Sterile Dressing Applied?: Yes Disposition - Clinical Impression Clinical Impression: Nasal bone fracture, Laceration of lip - Patient ED Disposition Is Patient to be Admitted: No Counseled Patient/Family Regarding: Studies Performed, Diagnosis, Need For Followup - Disposition Disposition: Routine/Home Disposition Time: 11:30 Condition: GOOD
--- NOTE | 2017-01-05 08:56 | CT ---
PROCEDURE: CT HEAD WITHOUT CONTRAST. HISTORY: trauma COMPARISON: None available. TECHNIQUE: Axial computed tomography images were obtained through the head/brain without intravenous contrast. Radiation dose: Total exam DLP = 1117 mGy-cm. This CT exam was performed using one or more of the following dose reduction techniques: Automated exposure control, adjustment of the mA and/or kV according to patient size, and/or use of iterative reconstruction technique. FINDINGS: HEMORRHAGE: No intracranial hemorrhage. BRAIN: No mass effect or edema. No atrophy or chronic microvascular ischemic changes. VENTRICLES: Unremarkable. No hydrocephalus. CALVARIUM: Unremarkable. PARANASAL SINUSES: Unremarkable as visualized. No significant inflammatory changes. MASTOID AIR CELLS: Unremarkable as visualized. No inflammatory changes. OTHER FINDINGS: None. IMPRESSION: Normal CT of the Head.
--- NOTE | 2017-01-05 09:44 | CT ---
PROCEDURE: CT scan maxillofacial skeleton dated 01/05/2017 HISTORY: Trauma COMPARISON: Correlation made with concurrent CT scan brain. TECHNIQUE: Contiguous helical/transaxial CT images of the maxillofacial bones were obtained. Coronal and sagittal reformats were generated. Radiation dose: Total exam DLP = 847.16 mGy-cm. This CT exam was performed using one or more of the following dose reduction techniques: Automated exposure control, adjustment of the mA and/or kV according to patient size, and/or use of iterative reconstruction technique. FINDINGS: NASAL BONES: The current study reveals tiny densities adjacent to the anterior aspect of the anterior nasal spine which could represent anatomic variant versus tiny avulsion fractures. Clinical correlation with physical exam and history. There is soft tissue swelling of the upper lip and lower lip extending inferolaterally overlying the mandible right greater than left. . Nasal bone appears grossly intact. There is mild leftward deviation of the nasal septum . The remaining maxillofacial skeletal structures appear intact without evidence of acute the displaced fractures. . Mandible also intact. The bony orbits intact. . The globes intact and lenses appropriately located. There are no retrobulbar hemorrhages or collections. There does appear to be exophthalmos. Clinical correlation of with ophthalmologic examination recommended. Optic nerves and extraocular musculature appear grossly unremarkable. The visualized paranasal sinuses are relatively well-developed. No fluid levels seen to suggest acute hemorrhage or sinusitis. Linear and polypoid like mucosal thickening present within both maxillary antra. There is also mild mucosal thickening within the ethmoid air complex extending superiorly into the frontal sinus. Questionable mild left frontal soft tissue swelling IMPRESSION: Small densities within soft tissues adjacent to the anterior aspect of the anterior nasal spine could represent paul normal variation versus tiny avulsion fractures. Clinic correlation with history recommended. Facial soft tissue swelling involving the upper lip . There is also soft tissue swelling involving the soft tissues of the lower lip right greater than left extending over the mandible. . Mucoperiosteal inflammatory changes within the maxillary ethmoid and frontal sinuses. . Findings suggest exophthalmos. Clinical correlation with ophthalmologic examination.
--- NOTE | 2017-01-05 09:49 | CT ---
PROCEDURE: CT scan cervical spine dated 01/05/2017 HISTORY: Trauma COMPARISON: No prior study available comparison TECHNIQUE: Contiguous helical/transaxial computed tomography images were obtained of the cervical spine without the use of intravenous contrast. Coronal and sagittal reformatted images were created and reviewed. Radiation dose: Total exam DLP = 527.2 mGy-cm. This CT exam was performed using one or more of the following dose reduction techniques: Automated exposure control, adjustment of the mA and/or kV according to patient size, and/or use of iterative reconstruction technique. FINDINGS: VERTEBRAE: Current study reveals no acute compression fractures no retropulsed fragments. Vertebral bodies exhibit normal stature and alignment. Facets normally aligned. DISCS/SPINAL CANAL/NEURAL FORAMINA: No significant central canal or neural foraminal stenosis. Discs heights are grossly preserved. PARASPINAL SOFT TISSUES: Prevertebral and paraspinal soft tissues unremarkable. Note made of multiple bilateral cervical lymph nodes nonspecific. OTHER FINDINGS: Mild biapical pleural thickening and parenchymal scarring. IMPRESSION: No evidence of acute fractures.
[2017-01-05 11:47] VITALS: BP 122/65; PULSE 75; RESP 14
== END 2017-01-05 10:33 | disposition home or self-care (01) ==
LOC: H.ER 06:13 → H.EROBSV 10:33
PROVIDERS: ADMIT Emergency Medicine; ATTEND Emergency Medicine
DX: S02.2XXA Fracture of nasal bones, initial encounter for closed fracture (principal); S01.511A Laceration without foreign body of lip, initial encounter; F41.9 Anxiety disorder, unspecified; W18.09XA Striking against other object with subsequent fall, initial encounter; Y92.9 Unspecified place or not applicable
CPT/HCPCS: 12051; 70450; 70486; 72125; 99285; G0378

== ENCOUNTER 2017-01-16 17:08 | Emergency (ER) | payer MEDICAID ==
[2017-01-16 17:15] VITALS: BP 139/89; PULSE 94; RESP 18; TEMP 98.6; O2SAT 96
--- NOTE | 2017-01-16 17:29 | ED PDOC ---
HPI: Psych/Substance Abuse Time Seen by Provider: 01/16/17 17:15 Chief Complaint (Nursing): Substance Abuse History Per: Patient, EMS (Brpought by EMS and [employer]. Pt states she was at home and mother called police because she thought she was high on drugs. Pt denies SI or HI. No c/o at present just wants to go home.) Suicide/Self Injury Attempted (Context): None Past Medical History Vital Signs: Last Vital Signs Temp 98.6 F 01/16/17 17:09 Pulse 94 H 01/16/17 17:09 Resp 18 01/16/17 17:09 BP 139/89 01/16/17 17:09 Pulse Ox 96 01/16/17 17:09 - Medical History PMH: Anxiety Denies: Diabetes, Hepatitis, HIV, HTN, Chronic Kidney Disease, Seizures, Sexually Transmitted Disease - Family History Family History: States: Unknown Family Hx - Home Medications Home Medications: Ambulatory Orders Medication Instructions Recorded Buspirone HCl 10 mg PO BID 03/19/14 Nitrofurantoin Macrocrystals 100 mg PO BID #9 cap 06/20/15 [Macrobid] Amoxicillin/Clavulanate [Augmentin 1 tab PO BID #14 tab 12/20/15 875 MG-125 MG] Azithromycin [Zithromax] 250 mg PO DAILY #6 tab 12/01/16 Ibuprofen [Motrin] 600 mg PO Q6 PRN #15 tab 12/01/16 Tobramycin 0.3% [Tobrex] 1 applic BOTHEYES Q8 #1 tube 01/04/17 - Allergies Allergies/Adverse Reactions: Allergies Allergy/AdvReac Type Severity Reaction Status Date / Time acetaminophen [From Tylenol] Allergy RASH Verified 01/05/17 06:44 Review of Systems ROS Statement: Except As Marked, All Systems Reviewed And Found Negative Physical Exam - Reviewed Nursing Documentation Reviewed: Yes Vital Signs Reviewed: Yes - Physical Exam Appears: Positive for: Non-toxic, No Acute Distress Head Exam: Positive for: ATRAUMATIC, NORMAL INSPECTION, NORMOCEPHALIC Skin: Positive for: Normal Color, Warm, DRY Eye Exam: Positive for: EOMI, Normal appearance, PERRL ENT: Positive for: Normal ENT Inspection Neck: Positive for: Normal, Painless ROM Cardiovascular/Chest: Positive for: Regular Rate, Rhythm Respiratory: Positive for: CNT, Normal Breath Sounds Gastrointestinal/Abdominal: Positive for: Normal Exam, Bowel Sounds, Soft Back: Positive for: Normal Inspection Extremity: Positive for: Normal ROM Neurologic/Psych: Positive for: Alert, Oriented - ECG O2 Sat by Pulse Oximetry: 96 Disposition - Clinical Impression Clinical Impression: Mood disorder - Patient ED Disposition Is Patient to be Admitted: No Counseled Patient/Family Regarding: Diagnosis, Need For Followup - Disposition Referrals: [facility] [Outside] Disposition: Routine/Home Disposition Time: 17:44 Condition: FAIR Instructions: Mood Disorders (ED) Forms: [facility] (Icelandic)
== END 2017-01-16 18:36 | disposition home or self-care (01) ==
LOC: H.ER 17:08
DX: F39 Unspecified mood [affective] disorder (principal)

== ENCOUNTER 2017-01-28 15:20 | Emergency (ER) | payer MEDICAID ==
[2017-01-28 15:34] VITALS: BP 129/83; PULSE 98; RESP 16; TEMP 98; O2SAT 99
--- NOTE | 2017-01-28 16:11 | ED PDOC ---
HPI: Wound Care - HPI Time Seen by Provider: 01/28/17 15:50 Chief Complaint (Nursing): Abnormal Skin Integrity Chief Complaint (Provider): Swelling to forehead History Per: Patient History Of Present Illness: Tri Parker is a 31 y/o female presenting to the ED for evaluation of a cyst to the left forehead for 1 week. Patient requesting the cyst be drained in the ED. No fever, erythema, or head trauma. PMD: Nirpaul Cathy Exam Limitations: no limitations Onset/Duration Of Symptoms: Days (x 1 week) Current Symptoms Are (Timing): Still Present Location Of Injury: Left: Head Past Medical History Reviewed: Historical Data, Nursing Documentation, Vital Signs Vital Signs: Last Vital Signs Temp 98.0 F 01/28/17 15:31 Pulse 98 H 01/28/17 15:31 Resp 16 01/28/17 15:31 BP 129/83 01/28/17 15:31 Pulse Ox 99 01/28/17 15:31 - Medical History PMH: Anxiety Denies: Diabetes, Hepatitis, HIV, HTN, Chronic Kidney Disease, Seizures, Sexually Transmitted Disease - Family History Family History: States: Unknown Family Hx - Home Medications Home Medications: Ambulatory Orders Medication Instructions Recorded Buspirone HCl 10 mg PO BID 03/19/14 Nitrofurantoin Macrocrystals 100 mg PO BID #9 cap 06/20/15 [Macrobid] Amoxicillin/Clavulanate [Augmentin 1 tab PO BID #14 tab 12/20/15 875 MG-125 MG] Azithromycin [Zithromax] 250 mg PO DAILY #6 tab 12/01/16 Ibuprofen [Motrin] 600 mg PO Q6 PRN #15 tab 12/01/16 Tobramycin 0.3% [Tobrex] 1 applic BOTHEYES Q8 #1 tube 01/04/17 Salicylic AC/Benzoyl Per/Vit E 1 each TP BID #1 combo..pkg 01/28/17 [Inova 4-1 Easy Pad] - Allergies Allergies/Adverse Reactions: Allergies Allergy/AdvReac Type Severity Reaction Status Date / Time acetaminophen [From Tylenol] Allergy RASH Verified 01/05/17 06:44 Review of Systems ROS Statement: Except As Marked, All Systems Reviewed And Found Negative Skin: Positive for: Other (Cyst to left forehead) Physical Exam - Reviewed Nursing Documentation Reviewed: Yes Vital Signs Reviewed: Yes - Physical Exam Appears: Positive for: Well, Non-toxic, No Acute Distress Head Exam: Positive for: ATRAUMATIC, NORMOCEPHALIC Skin: Positive for: Normal Color (with left-sided cyst at forehead without surrounding erythema or fluctuance), Warm, Dry Eye Exam: Positive for: Normal appearance Neck: Positive for: Normal Respiratory: Negative for: Respiratory Distress Neurologic/Psych: Positive for: Alert, Oriented - ECG O2 Sat by Pulse Oximetry: 99 (RA) Pulse Ox Interpretation: Normal Medical Decision Making Medical Decision Making: Time: 16:10 Initial Plan: --Advised patient to apply a warm compress to help with swelling --Explained that cyst is not ready to be drained. Patient needs to follow up with clerical specialist for treatment of cyst. Referrals provided. --Patient will be discharged home with Rx for Salicylic AC topical pads Scribe Attestation: Documented by Marlene Hidalgo, acting as a scribe for Dot Bruner PA-C Provider Scribe Attestation: All medical record entries made by the Scribe were at my direction and personally dictated by me. I have reviewed the chart and agree that the record accurately reflects my personal performance of the history, physical exam, medical decision making, and the department course for this patient. I have also personally directed, reviewed, and agree with the discharge instructions and disposition. Disposition - Clinical Impression Clinical Impression: Sebaceous cyst - Patient ED Disposition Is Patient to be Admitted: No Counseled Patient/Family Regarding: Diagnosis, Need For Followup - Disposition Referrals: Mekhi Arredondo MD [Non-Staff] - Mekhi Pablo MD [Medical Doctor] - Bernarda Morgan MD [Medical Doctor] - Bernardino Mccray MD [Medical Doctor] - Reginaldo Candelaria MD [Non-Staff] - Xin Murillo APN [Advanced Practice Nurse] - Lucía Pa PA [Physician Warehouse Pricing And Inventory Clerk] - Óscar Durán MD [Medical Doctor] - Edgar Parham [Medical Doctor] - Jean Parrish Jr., MD [Medical Doctor] - Bernardino Emery DO [Doctor Osteopathy] - Yaneli Mas MD [Medical Doctor] - Disposition: Routine/Home Disposition Time: 16:09 Condition: STABLE Prescriptions: Salicylic AC/Benzoyl Per/Vit E [Inova 4-1 Easy Pad] 1 each TP BID #1 combo..pkg Forms: [employer] [facility] (Nepali)
--- NOTE | 2017-01-28 16:13 | ED PDOC ---
HPI: Skin/Bite Injury Time Seen by Provider: 01/28/17 15:50 Chief Complaint (Nursing): Abnormal Skin Integrity Chief Complaint (Provider): Cyst History Per: Patient History/Exam Limitations: no limitations Onset/Duration Of Symptoms: Days (x 1 week) Current Symptoms Are (Timing): Still Present Location Of Injury: Left: Head Additional Complaint(s): Tir Parker is a 31 y/o female presenting to the ED for evaluation of a cyst to the left forehead for 1 week. Patient requesting the cyst be drained in the ED. PMD: Victoria Morgan Past Medical History Reviewed: Historical Data, Nursing Documentation, Vital Signs Vital Signs: Last Vital Signs Temp 98.0 F 01/28/17 15:31 Pulse 98 H 01/28/17 15:31 Resp 16 01/28/17 15:31 BP 129/83 01/28/17 15:31 Pulse Ox 99 01/28/17 15:31 - Medical History PMH: Anxiety Denies: Diabetes, Hepatitis, HIV, HTN, Chronic Kidney Disease, Seizures, Sexually Transmitted Disease - Family History Family History: States: Unknown Family Hx - Home Medications Home Medications: Ambulatory Orders Medication Instructions Recorded Buspirone HCl 10 mg PO BID 03/19/14 Nitrofurantoin Macrocrystals 100 mg PO BID #9 cap 06/20/15 [Macrobid] Amoxicillin/Clavulanate [Augmentin 1 tab PO BID #14 tab 12/20/15 875 MG-125 MG] Azithromycin [Zithromax] 250 mg PO DAILY #6 tab 12/01/16 Ibuprofen [Motrin] 600 mg PO Q6 PRN #15 tab 12/01/16 Tobramycin 0.3% [Tobrex] 1 applic BOTHEYES Q8 #1 tube 01/04/17 - Allergies Allergies/Adverse Reactions: Allergies Allergy/AdvReac Type Severity Reaction Status Date / Time acetaminophen [From Tylenol] Allergy RASH Verified 01/05/17 06:44 Review of Systems ROS Statement: Except As Marked, All Systems Reviewed And Found Negative Skin: Positive for: Other (Cyst on left forehead) Physical Exam - Reviewed Nursing Documentation Reviewed: Yes Vital Signs Reviewed: Yes - Physical Exam Appears: Positive for: Well, Non-toxic, No Acute Distress Skin: Positive for: Normal Color, Warm, Dry Eye Exam: Positive for: Normal appearance Neck: Positive for: Normal Respiratory: Negative for: Respiratory Distress Extremity: Positive for: Normal ROM. Negative for: Pedal Edema, Deformity Neurologic/Psych: Positive for: Alert, Oriented - ECG O2 Sat by Pulse Oximetry: 99 (RA) Pulse Ox Interpretation: Normal Medical Decision Making Medical Decision Making: Time: 16:10 Initial Plan: --Advised patient to apply a warm compress to help with swelling --Explained that patient needs to see ticket clerk for treatment of cyst Scribe Attestation: Documented by Marlene Hidalgo, acting as a scribe for oDt Bruner PA-C Provider Scribe Attestation: All medical record entries made by the Scribe were at my direction and personally dictated by me. I have reviewed the chart and agree that the record accurately reflects my personal performance of the history, physical exam, medical decision making, and the department course for this patient. I have also personally directed, reviewed, and agree with the discharge instructions and disposition. Disposition - Disposition Forms: [employer] (Divehi)
== END 2017-01-28 16:13 | disposition home or self-care (01) ==
LOC: H.ER 15:20
DX: L72.3 Sebaceous cyst (principal)

== ENCOUNTER 2017-03-09 23:13 | Emergency (ER) | payer MEDICAID ==
[2017-03-09 23:36] VITALS: BMI 25.7
[2017-03-09 23:40] VITALS: BP 149/93; RESP 22; TEMP 98.6; O2SAT 100
--- NOTE | 2017-03-09 23:48 | ED PDOC ---
HPI: Psych/Substance Abuse Time Seen by Provider: 03/09/17 23:25 Chief Complaint (Nursing): Substance Abuse History Per: Patient, EMS Additional Complaint(s): Pt. brought in by EMS and states she was unable to get into her house as her mother changed the locks. Pt. admits to smoking PCP. Requesting to leave ED. Offers no complaints at this time. Pt. well known to ED. Denies chest pain, SOB. Past Medical History Reviewed: Historical Data, Nursing Documentation, Vital Signs Vital Signs: Last Vital Signs Temp 98.6 F 03/09/17 23:36 Pulse 154 H 03/09/17 23:36 Resp 22 03/09/17 23:36 BP 149/93 H 03/09/17 23:36 Pulse Ox 100 03/09/17 23:36 - Medical History PMH: Anxiety Denies: Diabetes, Hepatitis, HIV, HTN, Chronic Kidney Disease, Seizures, Sexually Transmitted Disease - Surgical History Surgical History: No Surg Hx - Family History Family History: States: No Known Family Hx - Home Medications Home Medications: Ambulatory Orders Medication Instructions Recorded Buspirone HCl 10 mg PO BID 03/19/14 Nitrofurantoin Macrocrystals 100 mg PO BID #9 cap 06/20/15 [Macrobid] Amoxicillin/Clavulanate [Augmentin 1 tab PO BID #14 tab 12/20/15 875 MG-125 MG] Azithromycin [Zithromax] 250 mg PO DAILY #6 tab 12/01/16 Ibuprofen [Motrin] 600 mg PO Q6 PRN #15 tab 12/01/16 Tobramycin 0.3% [Tobrex] 1 applic BOTHEYES Q8 #1 tube 01/04/17 Salicylic AC/Benzoyl Per/Vit E 1 each TP BID #1 combo..pkg 01/28/17 [Inova 4-1 Easy Pad] - Allergies Allergies/Adverse Reactions: Allergies Allergy/AdvReac Type Severity Reaction Status Date / Time acetaminophen [From Tylenol] Allergy RASH Verified 03/09/17 23:36 Review of Systems ROS Statement: Except As Marked, All Systems Reviewed And Found Negative Physical Exam - Reviewed Nursing Documentation Reviewed: Yes Vital Signs Reviewed: Yes - Physical Exam Appears: Positive for: Well, Non-toxic, No Acute Distress Head Exam: Positive for: ATRAUMATIC, NORMAL INSPECTION, NORMOCEPHALIC Skin: Positive for: Normal Color, Warm. Negative for: Rash Eye Exam: Positive for: EOMI, Normal appearance, PERRL ENT: Positive for: Normal ENT Inspection Neck: Positive for: Normal, Painless ROM Cardiovascular/Chest: Positive for: Tachycardia. Negative for: Murmur, Bradycardia, Irregularly Irregular Respiratory: Positive for: CNT, Normal Breath Sounds Gastrointestinal/Abdominal: Positive for: Normal Exam, Bowel Sounds, Soft. Negative for: Tenderness Back: Positive for: Normal Inspection Extremity: Positive for: Normal ROM Neurologic/Psych: Positive for: Alert, Oriented, Gait (steady, unassisted). Negative for: Aphasia, Facial Droop - ECG ECG: Positive for: Interpreted By Me ECG Rhythm: Positive for: Sinus Tachycardia. Negative for: ST/T Changes Rate: 129 O2 Sat by Pulse Oximetry: 100 - Progress ED Course And Treament: Pt. is calm and cooperative and left ED before treatment complete. Disposition - Clinical Impression Clinical Impression: Substance abuse - Patient ED Disposition Is Patient to be Admitted: No - Disposition Disposition: Left W/O Treatment Disposition Time: 23:49 Condition: STABLE Forms: [facility] ([place])
[2017-03-09 23:50] VITALS: PULSE 129
--- NOTE | 2017-03-11 12:26 | CARD ---
APPROVED REPORT EKG Measurement Heart [id number] DE 158P60 [id number] <Conclusion> Sinus tachycardia Otherwise normal ECG
== END 2017-03-09 23:50 | disposition left against medical advice (07) ==
LOC: H.ER 23:13
DX: F19.10 Other psychoactive substance abuse, uncomplicated (principal); F41.9 Anxiety disorder, unspecified

== ENCOUNTER 2017-05-24 23:49 | Emergency (ER) | payer MEDICAID ==
[2017-05-24 23:50] VITALS: BMI 25.7
[2017-05-25 00:04] VITALS: BP 158/87; PULSE 96; RESP 18; TEMP 98.6; O2SAT 100
== END 2017-05-25 00:10 | disposition left against medical advice (07) ==
LOC: H.ER 23:49
DX: Z02.89 Encounter for other administrative examinations (principal)

== ENCOUNTER 2017-06-18 23:39 | Emergency (ER) | payer MEDICAID ==
[2017-06-18 23:39] VITALS: BMI 25.7
[2017-06-19 01:17] LABS: SQUAMOUS EPITHIAL 3 /hpf (0-5); URINE BILIRUBIN NEGATIVE (NEGATIVE); URINE BLOOD MODERATE (NEGATIVE); URINE CLARITY SLIGHTY-CLOUDY (Clear); URINE COLOR YELLOW (YELLOW); URINE GLUCOSE (UA) NEG (Normal); URINE LEUKOCYTE ESTERASE NEG Leu/uL (Negative); URINE NITRATE NEGATIVE (NEGATIVE); URINE PROTEIN NEGATIVE (NEGATIVE); URINE UROBILINOGEN 0.2-1.0 mg/dL (0.2-1.0)
[2017-06-19 01:37] LABS: BARBITURATES, UR NEGATIVE (NEGATIVE); BENZODIAZEPINES, UR NEGATIVE (NEGATIVE); OPIATES, UR NEGATIVE (NEGATIVE); PHENCYCLIDINE, UR POSITIVE (NEGATIVE)
--- NOTE | 2017-06-19 01:48 | ED PDOC ---
HPI: Psych/Substance Abuse Time Seen by Provider: 06/18/17 23:42 Chief Complaint (Nursing): Substance Abuse Chief Complaint (Provider): Substance Abuse ED Caveat: Intoxicated History Per: Patient History/Exam Limitations: no limitations Onset/Duration Of Symptoms: Mins (prior to arrival) Current Symptoms Are (Timing): Still Present Additional Complaint(s): 31 year old female, well known to ED with a history of PCP abuse, is brought into the ED for PCP use. PMD: none provided Past Medical History Reviewed: Historical Data, Nursing Documentation, Vital Signs Vital Signs: Last Vital Signs Temp 98.0 F 06/18/17 23:41 Pulse 88 06/18/17 23:41 Resp 16 06/18/17 23:41 BP 148/96 H 06/18/17 23:41 Pulse Ox 98 06/18/17 23:41 - Medical History PMH: Anxiety Denies: Diabetes, Hepatitis, HIV, HTN, Chronic Kidney Disease, Seizures, Sexually Transmitted Disease - Surgical History Surgical History: No Surg Hx - Family History Family History: States: Unknown Family Hx - Home Medications Home Medications: Ambulatory Orders Medication Instructions Recorded Buspirone HCl 10 mg PO BID 03/19/14 Nitrofurantoin Macrocrystals 100 mg PO BID #9 cap 06/20/15 [Macrobid] Amoxicillin/Clavulanate [Augmentin 1 tab PO BID #14 tab 12/20/15 875 MG-125 MG] Azithromycin [Zithromax] 250 mg PO DAILY #6 tab 12/01/16 Ibuprofen [Motrin] 600 mg PO Q6 PRN #15 tab 12/01/16 Tobramycin 0.3% [Tobrex] 1 applic BOTHEYES Q8 #1 tube 01/04/17 Salicylic AC/Benzoyl Per/Vit E 1 each TP BID #1 combo..pkg 01/28/17 [Inova 4-1 Easy Pad] - Allergies Allergies/Adverse Reactions: Allergies Allergy/AdvReac Type Severity Reaction Status Date / Time acetaminophen [From Tylenol] Allergy seizures Verified 06/18/17 23:41 Review of Systems ROS Statement: Except As Marked, All Systems Reviewed And Found Negative Physical Exam - Reviewed Nursing Documentation Reviewed: Yes Vital Signs Reviewed: Yes - Physical Exam Appears: Positive for: Non-toxic, No Acute Distress Head Exam: Positive for: ATRAUMATIC, NORMOCEPHALIC Skin: Positive for: Normal Color, Warm, Dry Eye Exam: Positive for: EOMI, Normal appearance, PERRL Neck: Positive for: Normal, Painless ROM, Supple Cardiovascular/Chest: Positive for: Regular Rate, Rhythm. Negative for: Murmur Respiratory: Positive for: Normal Breath Sounds. Negative for: Respiratory Distress Gastrointestinal/Abdominal: Positive for: Normal Exam, Soft Back: Positive for: Normal Inspection. Negative for: L CVA Tenderness, R CVA Tenderness, Vertebral Tenderness Extremity: Positive for: Normal ROM. Negative for: Deformity Neurologic/Psych: Positive for: Oriented (x 1) - Laboratory Results Result Diagrams: 06/19/17 03:53 - ECG O2 Sat by Pulse Oximetry: 98 (RA) Pulse Ox Interpretation: Normal Medical Decision Making Medical Decision Making: Time: 23:52 Impression: Initial Plan: --EKG --Alcohol serum --Urine drug --CBC with differentials --1:1 observation --Restraints ordered --urinalysis Patient is intoxicated and well known to the ED for PCP abuse. She was uncooperative and at a high risk for elopement and self injury. Scribe Attestation: Documented by Malissa Valente, acting as a scribe for Angelo Virk MD. Provider Scribe Attestation: All medical record entries made by the Scribe were at my direction and personally dictated by me. I have reviewed the chart and agree that the record accurately reflects my personal performance of the history, physical exam, medical decision making, and the department course for this patient. I have also personally directed, reviewed, and agree with the discharge instructions and disposition. Disposition - Clinical Impression Clinical Impression: PCP abuse - Patient ED Disposition Is Patient to be Admitted: Transfer of Care - Disposition Disposition: Transfer of Care Disposition Time: 06:28 Condition: STABLE Instructions: Drug Abuse and Drug Addiction (DC) Forms: [employer] (Guyanese) Patient Signed Over To: Daphne Mcgarry Handoff Comments: pending sobriety and reevaluation
[2017-06-19 04:01] LABS: BASO # 0.1 K/uL (0.0-0.2); BASO % 0.6 % (0.0-2.0); EOS # 0.1 K/uL (0.0-0.7); EOS % 0.7 % (0.0-4.0); HEMOGLOBIN 13.6 g/dL (12.0-16.0); LYMPH # 2.8 K/uL (1.0-4.3); LYMPH % 25.5 % (20.0-40.0); MEAN CELL VOLUME 88.3 fl (81.0-99.0); MEAN CORPUSCULAR HEMOGLOBIN 29.1 pg (27.0-31.0); MEAN PLATELET VOLUME 8.3 fl (7.2-11.7); MONO # 0.8 K/uL (0.0-0.8); MONO % 6.9 % (0.0-10.0); NEUT # 7.2 K/uL (1.8-7.0); NEUT % 66.3 % (50.0-75.0); NRBC % 0.1 % (0.0-0.0); RBC 4.68 Mil/uL (3.80-5.20); RED CELL DISTRIBUTION WIDTH 14.1 % (11.5-14.5); WHITE BLOOD COUNT 10.9 K/uL (4.8-10.8)
--- NOTE | 2017-06-19 07:13 | ED PDOC ---
- Laboratory Results Result Diagrams: 06/19/17 03:53 - ECG O2 Sat by Pulse Oximetry: 98 (RA) Medical Decision Making Medical Decision Makin:00 Patient signed out to me by Dr. Virk pending sobriety. Scribe Attestation: Documented by Shamika Thompson, acting as a scribe for Daphne Mcgarry MD. Provider Scribe Attestation: All medical record entries made by the Scribe were at my direction and personally dictated by me. I have reviewed the chart and agree that the record accurately reflects my personal performance of the history, physical exam, medical decision making, and the department course for this patient. I have also personally directed, reviewed, and agree with the discharge instructions and disposition. Disposition - Clinical Impression Clinical Impression: PCP abuse - Disposition Condition: STABLE Instructions: Drug Abuse and Drug Addiction (DC) Forms: [facility] ([place]epali)
[2017-06-19 07:46] VITALS: BP 135/84; PULSE 85; RESP 16; TEMP 98.2; O2SAT 100
--- NOTE | 2017-06-19 11:40 | CARD ---
APPROVED REPORT EKG Measurement Heart [id number] DC 128P54 [id number] <Conclusion> Normal sinus rhythm Normal ECG
== END 2017-06-19 07:57 | disposition home or self-care (01) ==
LOC: H.ER 23:39
DX: F19.10 Other psychoactive substance abuse, uncomplicated (principal)
CPT/HCPCS: 80320; 80324; 80345; 80346; 80349; 80353; 80358; 80361; 81003; 82948; 83992; 85025; 93005; 96372; 99285; J1630; J2060

== ENCOUNTER 2017-08-17 10:02 | Emergency (ER) | payer MEDICAID ==
[2017-08-17 10:03] VITALS: BMI 25.7
[2017-08-17 10:09] VITALS: BP 112/74; PULSE 117; RESP 17; TEMP 98.7; O2SAT 96
--- NOTE | 2017-08-17 10:26 | ED PDOC ---
HPI: Wound Care - HPI Time Seen by Provider: 08/17/17 10:18 Chief Complaint (Nursing): Abnormal Skin Integrity Chief Complaint (Provider): finger laceration History Per: Patient Additional Complaint(s): 31 y/o right hand dominant female presents with laceration to right 4th digit sustained about 1 hour prior to arrival when patient cut finger accidentally while chopping onions. She applied bandage and came to ED. Patient is up to date with tetanus. She has pain to affected area with no associated numbness or tingling. PMD: none Past Medical History Reviewed: Historical Data, Nursing Documentation, Vital Signs Vital Signs: Last Vital Signs Temp 98.7 F 08/17/17 10:08 Pulse 117 H 08/17/17 10:08 Resp 17 08/17/17 10:08 BP 112/74 08/17/17 10:08 Pulse Ox 96 08/17/17 10:08 - Medical History PMH: Anxiety, Diabetes, Chronic Kidney Disease, Sexually Transmitted Disease - Family History Family History: States: Unknown Family Hx - Living Arrangements Living Arrangements: With Family - Social History Current smoker - smoking cessation education provided: No Alcohol: None Drugs: Denies - Immunization History Hx Tetanus Toxoid Vaccination: Yes - Home Medications Home Medications: Ambulatory Orders Medication Instructions Recorded Buspirone HCl 10 mg PO BID 03/19/14 Nitrofurantoin Macrocrystals 100 mg PO BID #9 cap 06/20/15 [Macrobid] Amoxicillin/Clavulanate [Augmentin 1 tab PO BID #14 tab 12/20/15 875 MG-125 MG] Azithromycin [Zithromax] 250 mg PO DAILY #6 tab 12/01/16 Ibuprofen [Motrin] 600 mg PO Q6 PRN #15 tab 12/01/16 Tobramycin 0.3% [Tobrex] 1 applic BOTHEYES Q8 #1 tube 01/04/17 Salicylic AC/Benzoyl Per/Vit E 1 each TP BID #1 combo..pkg 01/28/17 [Inova 4-1 Easy Pad] - Allergies Allergies/Adverse Reactions: Allergies Allergy/AdvReac Type Severity Reaction Status Date / Time acetaminophen [From Tylenol] Allergy seizures Verified 06/18/17 23:41 Review of Systems ROS Statement: Except As Marked, All Systems Reviewed And Found Negative Skin: Positive for: Other (right 4th digit laceration) Physical Exam - Reviewed Nursing Documentation Reviewed: Yes Vital Signs Reviewed: Yes - Physical Exam Appears: Positive for: Well, Non-toxic, No Acute Distress Skin: Negative for: Rash Eye Exam: Positive for: Normal appearance Extremity: Positive for: Other (2 cm curvilinear laceration with distal flap noted to fingerpad of right 4th digit, minimal active bleeding, full rom of affected digit, fingernail intact) Neurologic/Psych: Positive for: Alert, Oriented - ECG O2 Sat by Pulse Oximetry: 96 Pulse Ox Interpretation: Normal Procedure: Wound Repair - Time Performed Time Performed: 11:22 - Time Out Time Out: Side verified, Patient ID confirmed, Sterile procedures obs. - Procedure Procedure: Wound Repair: Laceration right 4th digit - Consent Obtained Consent obtained: Verbal - Performed by Performed by: Mid-level Provider - Indications Indication(s):: Laceration - Location Location:: Right Shape:: Curvilinear (with small flap distally) - Anesthetic Technique Anesthetic Technique: Regional block (digital block to right 4th digit) Local/Regional Anesthetic:: Lidocaine 1% - Debris Debris:: None - Wound repair method Sutures:: # (6), Size (5-0), Type (nylon), Technique (simple interrupted) - Muscle repiar layer closed with Muscle repair layer closed with:: Abx ointment applied, Dressing applied, Tetanus up to date - Complications Complications: none - Patient tolerated procedure Patient Tolerated Procedure:: Well Medical Decision Making Medical Decision Makin31 year old with right 4th digit laceration Plan: Suture repair of wound - patient agrees to suture repair by ad copy writer Wound care instructions given. Patient advised to take Advil for pain as needed. Disposition - Clinical Impression Clinical Impression: Finger laceration - Patient ED Disposition Is Patient to be Admitted: No Counseled Patient/Family Regarding: Diagnosis, Need For Followup - Disposition Referrals: [facility] [Outside] Disposition: Routine/Home Disposition Time: 10:58 Condition: STABLE Additional Instructions: Keep wound clean and dry. Advil for pain as needed. Wound check in 2 days. Suture removal 10 -14 days. Instructions: Laceration Repair With Stitches (DC) Forms: [employer] (German)
[2017-08-17] MEDS ORDERED: Lidocaine 2% Inj (20ml) SC ONE (10:46)
[2017-08-17] MEDS ORDERED: Lidocaine 2% Inj (20ml) ONE (10:50)
[2017-08-17] MEDS ORDERED: Povidone Iodine Topical 10% Sol ONE (11:05)
[2017-08-17] MEDS ORDERED: Povidone Iodine Topical 10% Sol TOP ONE (11:05)
== END 2017-08-17 11:49 | disposition home or self-care (01) ==
LOC: H.ER 10:02
DX: S61.214A Laceration without foreign body of right ring finger without damage to nail, initial encounter (principal); W26.0XXA Contact with knife, initial encounter; Y92.89 Other specified places as the place of occurrence of the external cause; F41.9 Anxiety disorder, unspecified

== ENCOUNTER 2017-11-16 22:20 | Emergency (ER) | payer MEDICAID ==
[2017-11-16 22:20] VITALS: BMI 25.7
[2017-11-16 22:32] VITALS: O2SAT 99
--- NOTE | 2017-11-16 22:34 | ED PDOC ---
HPI: Psych/Substance Abuse Time Seen by Provider: 11/16/17 22:32 Chief Complaint (Nursing): Psychiatric Evaluation Chief Complaint (Provider): substance abuse History Per: Patient Additional Complaint(s): 31 year old female presents to ER for evaluation of possible substance abuse. Patient has history of PCP use and this evening was sitting at home when her mother noted that she was hallucinating and staring off into space. Mother became concerned and contacted police and patient was brought here. Patient is not under arrest. She states that she smoked marijuana and denies use of any other drugs or alcohol. Patient denies suicidal or homicidal ideation. Past Medical History Reviewed: Historical Data, Nursing Documentation, Vital Signs Vital Signs: Last Vital Signs Temp 99 F 11/16/17 22:27 Pulse 105 H 11/16/17 22:27 Resp 20 11/16/17 22:27 BP 133/89 11/16/17 22:27 Pulse Ox 99 11/16/17 22:27 - Medical History PMH: Anxiety, Diabetes - Family History Family History: States: No Known Family Hx - Living Arrangements Living Arrangements: With Family - Social History Current smoker - smoking cessation education provided: Yes Alcohol: None Drugs: Other (PCP) - Home Medications Home Medications: Ambulatory Orders Medication Instructions Recorded Buspirone HCl 10 mg PO BID 03/19/14 Nitrofurantoin Macrocrystals 100 mg PO BID #9 cap 06/20/15 [Macrobid] Amoxicillin/Clavulanate [Augmentin 1 tab PO BID #14 tab 12/20/15 875 MG-125 MG] Azithromycin [Zithromax] 250 mg PO DAILY #6 tab 12/01/16 Ibuprofen [Motrin] 600 mg PO Q6 PRN #15 tab 12/01/16 Tobramycin 0.3% [Tobrex] 1 applic BOTHEYES Q8 #1 tube 01/04/17 Salicylic AC/Benzoyl Per/Vit E 1 each TP BID #1 combo..pkg 01/28/17 [Inova 4-1 Easy Pad] - Allergies Allergies/Adverse Reactions: Allergies Allergy/AdvReac Type Severity Reaction Status Date / Time acetaminophen [From Tylenol] Allergy seizures Verified 11/16/17 22:27 Review of Systems ROS Statement: Except As Marked, All Systems Reviewed And Found Negative Psych: Positive for: Other (substance abuse) Physical Exam - Reviewed Nursing Documentation Reviewed: Yes Vital Signs Reviewed: Yes - Physical Exam Appears: Positive for: Well, Non-toxic, No Acute Distress Skin: Positive for: Normal Color. Negative for: Rash Eye Exam: Positive for: Normal appearance Cardiovascular/Chest: Positive for: Regular Rate, Rhythm Respiratory: Positive for: Normal Breath Sounds Neurologic/Psych: Positive for: Alert, Oriented - ECG O2 Sat by Pulse Oximetry: 99 Pulse Ox Interpretation: Normal Medical Decision Making Medical Decision Makin31 y/o female with substance abuse 10:30 pm: Patient is uncooperative upon arrival, refused to change into gowns initially was able to be redirected and started to cooperate. Plan: 1:1 observation BAL UDS test 10:50 pm: Patient is becoming increasingly agitated, is choosing to allow for blood drawn refusing to provide urine sample. Patient started to flail her arms when approached by RN. Security was called to bedside, patient was placed in 4 point restraints for her safety and safety of ED staff. Patient was medicated with 2 mg IM ativan and 5 mg IM haldol. 11:45 pm: Patient continues to scream and yell, she remains acutely agitated, 2 mg IM Ativan was administered. Vital signs are stable, patient will continue to remain under one-to-one observation. Disposition - Clinical Impression Clinical Impression: Substance abuse - Patient ED Disposition Is Patient to be Admitted: Transfer of Care - Disposition Disposition: Transfer of Care Disposition Time: 23:55 Condition: FAIR Forms: [facility] ([place]) Patient Signed Over To: Dee Roberson PA-C Handoff Comments: Case was signed out pending diagnostic testing results, sobriety and final disposition
--- NOTE | 2017-11-17 05:16 | ED PDOC ---
- ECG O2 Sat by Pulse Oximetry: 99 Medical Decision Making Medical Decision Making: Case endorsed to me from ANGLE Masters at 0000 pending sobriety. Patient is known to use and abuse PCP. Alcohol level was <10, urine tox still pending as the patient has not provided urine. 0300 Patient sleeping comfortably in no acute distress, breathing is easy and unlabored. Patient still in 1:1 obs at this time. 0500 Patient is more awake, alert and oriented x3. Patient is laying in bed comfortably in no distress. Patient has no complaints. States that she wants to go home. Repeat neuro exam shows no focal findings. She is speaking in full sentences, with a normal gait. Patient is cleared for d/c. 0600 VS T 97 P 102 BP 116/83 R 14 O2sat 99%RA Disposition - Clinical Impression Clinical Impression: Substance abuse - POA Present On Arrival: None - Disposition Disposition: Routine/Home Disposition Time: 06:00 Condition: FAIR Instructions: Drug Abuse and Drug Addiction (DC) Forms: [employer] ([place]) - PA / UNDERGROUND DISTRIBUTION ENGINEER / Resident Statement MD/DO has reviewed & agrees with the documentation as recorded.
[2017-11-17 06:14] VITALS: BP 116/83; PULSE 102; RESP 14; TEMP 97.6
== END 2017-11-17 06:30 | disposition home or self-care (01) ==
LOC: H.ER 22:20
DX: F19.10 Other psychoactive substance abuse, uncomplicated (principal); E11.9 Type 2 diabetes mellitus without complications; F12.90 Cannabis use, unspecified, uncomplicated; Z00.8 Encounter for other general examination
CPT/HCPCS: 80320; 96372; 99284; J1630

== ENCOUNTER 2017-11-17 23:42 | Emergency (ER) | payer MEDICAID ==
[2017-11-18 00:07] VITALS: BMI 24.0
[2017-11-18 00:09] VITALS: TEMP 98.8; O2SAT 98
--- NOTE | 2017-11-18 00:09 | ED PDOC ---
HPI: Psych/Substance Abuse Time Seen by Provider: 11/17/17 23:57 Chief Complaint (Nursing): Substance Abuse History Per: Patient, EMS History/Exam Limitations: no limitations Onset/Duration Of Symptoms: Mins Additional Complaint(s): Patient was brought to the ER by EMS for evaluation of possible drug abuse, EMS reported possible PCP abuse but patient denies and states she feels fine and wants to go home. Denies suicidal or homicidal ideation. Patient calm, cooperative during interview and exam. Past Medical History Reviewed: Historical Data, Nursing Documentation, Vital Signs - Medical History PMH: Anxiety, Diabetes, Chronic Kidney Disease, Sexually Transmitted Disease Denies: Hepatitis, HIV, HTN, Seizures - Family History Family History: States: Unknown Family Hx - Immunization History Hx Tetanus Toxoid Vaccination: Yes - Home Medications Home Medications: Ambulatory Orders Medication Instructions Recorded Buspirone HCl 10 mg PO BID 03/19/14 Nitrofurantoin Macrocrystals 100 mg PO BID #9 cap 06/20/15 [Macrobid] Amoxicillin/Clavulanate [Augmentin 1 tab PO BID #14 tab 12/20/15 875 MG-125 MG] Azithromycin [Zithromax] 250 mg PO DAILY #6 tab 12/01/16 Ibuprofen [Motrin] 600 mg PO Q6 PRN #15 tab 12/01/16 Tobramycin 0.3% [Tobrex] 1 applic BOTHEYES Q8 #1 tube 01/04/17 Salicylic AC/Benzoyl Per/Vit E 1 each TP BID #1 combo..pkg 01/28/17 [Inova 4-1 Easy Pad] - Allergies Allergies/Adverse Reactions: Allergies Allergy/AdvReac Type Severity Reaction Status Date / Time acetaminophen [From Tylenol] Allergy seizures Verified 11/18/17 00:06 Review of Systems ROS Statement: Except As Marked, All Systems Reviewed And Found Negative Physical Exam - Reviewed Nursing Documentation Reviewed: Yes Vital Signs Reviewed: Yes - Physical Exam Appears: Positive for: Well, Non-toxic, No Acute Distress Head Exam: Positive for: ATRAUMATIC, NORMAL INSPECTION, NORMOCEPHALIC Skin: Positive for: Normal Color, Warm, DRY Eye Exam: Positive for: EOMI, Normal appearance, PERRL ENT: Positive for: Normal ENT Inspection Neck: Positive for: Normal, Painless ROM Cardiovascular/Chest: Positive for: Regular Rate, Rhythm Respiratory: Positive for: CNT, Normal Breath Sounds Gastrointestinal/Abdominal: Positive for: Normal Exam, Soft Back: Positive for: Normal Inspection Extremity: Positive for: Normal ROM Neurologic/Psych: Positive for: Alert, kinesiotherapist II-XII, Oriented, Mood/Affect (calm) . Negative for: Motor/Sensory Deficits - ECG Pulse Ox Interpretation: Normal Medical Decision Making Medical Decision Making: Patient brought to ER for evaluation of drug abuse. On arrival, patient is calm , cooperative, stable vitals (HR 100), asking to be discharged. Patient not a danger to herself or others, walking with steady gait, stable for discharge. Disposition - Clinical Impression Clinical Impression: Substance abuse - Patient ED Disposition Is Patient to be Admitted: No - Disposition [facility]errals[facility] Disposition: Routine/Home Disposition Time: 00:09 Condition: STABLE Instructions: Drug Abuse and Drug Addiction (DC)
[2017-11-18 05:41] VITALS: BP 120/72; PULSE 98; RESP 16
== END 2017-11-18 00:16 | disposition home or self-care (01) ==
LOC: H.ER 23:42
DX: F19.10 Other psychoactive substance abuse, uncomplicated (principal)

== ENCOUNTER 2017-11-18 18:53 | Emergency (ER) | payer MEDICAID ==
[2017-11-18 18:53] VITALS: BMI 24.0
[2017-11-18 18:58] VITALS: TEMP 99.1
--- NOTE | 2017-11-18 19:09 | ED PDOC ---
HPI: General Adult Time Seen by Provider: 11/18/17 19:07 Chief Complaint (Nursing): Medical Clearance Chief Complaint (Provider): MEDICAL CLEARANCE History Per: Patient (31 Y/O FEMALE HERE FOR MEDICAL CLEARANCE PRIOR TO INCARCERATION. PATIENT DENIES ANY COMPLAINTS. DENIES ANY SUBSTANCE ABUSE. ) Past Medical History Reviewed: Historical Data, Nursing Documentation, Vital Signs Vital Signs: Last Vital Signs Temp 99.1 F 11/18/17 18:54 Pulse 106 H 11/18/17 18:54 Resp 18 11/18/17 18:54 BP 122/79 11/18/17 18:54 Pulse Ox 99 11/18/17 18:54 - Medical History PMH: Anxiety, Diabetes, Chronic Kidney Disease, Sexually Transmitted Disease Denies: Hepatitis, HIV, HTN, Seizures - Family History Family History: States: Unknown Family Hx - Immunization History Hx Tetanus Toxoid Vaccination: Yes - Home Medications Home Medications: Ambulatory Orders Medication Instructions Recorded Buspirone HCl 10 mg PO BID 03/19/14 Nitrofurantoin Macrocrystals 100 mg PO BID #9 cap 06/20/15 [Macrobid] Amoxicillin/Clavulanate [Augmentin 1 tab PO BID #14 tab 12/20/15 875 MG-125 MG] Azithromycin [Zithromax] 250 mg PO DAILY #6 tab 12/01/16 Ibuprofen [Motrin] 600 mg PO Q6 PRN #15 tab 12/01/16 Tobramycin 0.3% [Tobrex] 1 applic BOTHEYES Q8 #1 tube 01/04/17 Salicylic AC/Benzoyl Per/Vit E 1 each TP BID #1 combo..pkg 01/28/17 [Inova 4-1 Easy Pad] - Allergies Allergies/Adverse Reactions: Allergies Allergy/AdvReac Type Severity Reaction Status Date / Time acetaminophen [From Tylenol] Allergy seizures Verified 11/18/17 00:06 Review of Systems ROS Statement: Except As Marked, All Systems Reviewed And Found Negative Physical Exam - Reviewed Nursing Documentation Reviewed: Yes Vital Signs Reviewed: Yes - Physical Exam Appears: Positive for: Well, Non-toxic, No Acute Distress Head Exam: Positive for: ATRAUMATIC, NORMAL INSPECTION, NORMOCEPHALIC Skin: Positive for: Normal Color, Warm, DRY Eye Exam: Positive for: EOMI, Normal appearance, PERRL ENT: Positive for: Normal ENT Inspection Neck: Positive for: Normal, Painless ROM Cardiovascular/Chest: Positive for: Regular Rate, Rhythm Respiratory: Positive for: CNT, Normal Breath Sounds Gastrointestinal/Abdominal: Positive for: Normal Exam, Soft Back: Positive for: Normal Inspection Extremity: Positive for: Normal ROM Neurologic/Psych: Positive for: Alert, Oriented - ECG O2 Sat by Pulse Oximetry: 99 Disposition - Clinical Impression Clinical Impression: Medical clearance for incarceration - Patient ED Disposition Is Patient to be Admitted: No - Disposition Disposition: Routine/Home Disposition Time: 19:08 Condition: FAIR Additional Instructions: PATIENT IS MEDICALLY AND PSYCHIATRICALLY CLEARED FOR INCARCERATION. Instructions: General (DC)
[2017-11-18 19:28] VITALS: BP 120/78; PULSE 97; RESP 16; O2SAT 100
== END 2017-11-18 19:28 ==
LOC: H.ER 18:53
DX: F41.9 Anxiety disorder, unspecified; N18.9 Chronic kidney disease, unspecified

== ENCOUNTER 2018-01-11 20:00 | Emergency (ER) | payer MEDICAID ==
[2018-01-11 20:01] VITALS: BMI 24.0
[2018-01-11 20:03] VITALS: BP 146/98; PULSE 99; TEMP 98.8
[2018-01-11 20:11] VITALS: RESP 18; O2SAT 100
--- NOTE | 2018-01-11 21:07 | ED PDOC ---
HPI: Psych/Substance Abuse Time Seen by Provider: 01/11/18 20:13 Chief Complaint (Nursing): Substance Abuse Chief Complaint (Provider): Substance Abuse History Per: Patient, EMS History/Exam Limitations: no limitations Onset/Duration Of Symptoms: Hrs Additional Complaint(s): Tri Parker is a 32 year old female with no significant past medical history who was brought to the ED by EMS for possible substance abuse. Mother called the police because she claimed she knew her daughter was doing drugs and wanted her to be checked for drug abuse. Of note, this appears to be a domestic problem and patient denies any complaints. She does admit to recreational drug usage in the past but states that she has not used drugs recently. Patient denies any medical complaints, suicidal and homicidal ideation. PMD: none provided Past Medical History Reviewed: Historical Data, Nursing Documentation, Vital Signs Vital Signs: Last Vital Signs Temp 98.8 F 01/11/18 20:05 Pulse 99 H 01/11/18 20:05 Resp 18 01/11/18 20:05 BP 146/98 H 01/11/18 20:05 Pulse Ox 100 01/11/18 20:05 - Medical History PMH: Anxiety, Diabetes, Chronic Kidney Disease, Sexually Transmitted Disease Denies: Hepatitis, HIV, HTN, Seizures - Surgical History Surgical History: No Surg Hx - Family History Family History: States: Unknown Family Hx - Social History Current smoker - smoking cessation education provided: No Alcohol: None Drugs: Denies - Immunization History Hx Tetanus Toxoid Vaccination: Yes - Home Medications Home Medications: Ambulatory Orders Medication Instructions Recorded Buspirone HCl 10 mg PO BID 03/19/14 Nitrofurantoin Macrocrystals 100 mg PO BID #9 cap 06/20/15 [Macrobid] Amoxicillin/Clavulanate [Augmentin 1 tab PO BID #14 tab 12/20/15 875 MG-125 MG] Azithromycin [Zithromax] 250 mg PO DAILY #6 tab 12/01/16 Ibuprofen [Motrin] 600 mg PO Q6 PRN #15 tab 12/01/16 Tobramycin 0.3% [Tobrex] 1 applic BOTHEYES Q8 #1 tube 01/04/17 Salicylic AC/Benzoyl Per/Vit E 1 each TP BID #1 combo..pkg 01/28/17 [Inova 4-1 Easy Pad] - Allergies Allergies/Adverse Reactions: Allergies Allergy/AdvReac Type Severity Reaction Status Date / Time acetaminophen [From Tylenol] Allergy seizures Verified 01/11/18 20:05 Review of Systems ROS Statement: Except As Marked, All Systems Reviewed And Found Negative Psych: Negative for: Suicidal ideation, Other (homicidal ideation) Physical Exam - Reviewed Nursing Documentation Reviewed: Yes Vital Signs Reviewed: Yes - Physical Exam Appears: Positive for: Non-toxic, No Acute Distress Head Exam: Positive for: ATRAUMATIC, NORMAL INSPECTION, NORMOCEPHALIC Skin: Positive for: Normal Color, Warm, DRY Eye Exam: Positive for: EOMI, Normal appearance, PERRL ENT: Positive for: Normal ENT Inspection Neck: Positive for: Normal, Painless ROM Cardiovascular/Chest: Positive for: Regular Rate, Rhythm. Negative for: Murmur Respiratory: Positive for: Normal Breath Sounds. Negative for: Respiratory Distress Gastrointestinal/Abdominal: Positive for: Normal Exam, Soft. Negative for: Tenderness Back: Positive for: Normal Inspection Extremity: Positive for: Normal ROM. Negative for: Deformity, Swelling Neurologic/Psych: Positive for: Alert, Oriented, Gait (steady). Negative for: Motor/Sensory Deficits - ECG O2 Sat by Pulse Oximetry: 100 (RA) Pulse Ox Interpretation: Normal Medical Decision Making Medical Decision Making: Time: 20:15 Impression: recreational substance abuse Patient is nontoxic, and not symptomatic in the ED at this time with no medical complaints. Upon provider evaluation, patient is medically stable for discharge home. Scribe Attestation: Documented by, Maria Esther Ramos acting as a scribe for Bhavana Butts MD. Provider Scribe Attestation: All medical record entries made by the Scribe were at my direction and personally dictated by me. I have reviewed the chart and agree that the record accurately reflects my personal performance of the history, physical exam, medical decision making, and the department course for this patient. I have also personally directed, reviewed, and agree with the discharge instructions and disposition. Disposition - Clinical Impression Clinical Impression: Substance abuse - Patient ED Disposition Is Patient to be Admitted: No - Disposition Referrals: [facility] [place] [Outside] Disposition: Routine/Home Disposition Time: 20:20 Condition: GOOD Instructions: Drug Abuse and Drug Addiction (DC)
== END 2018-01-11 20:22 | disposition home or self-care (01) ==
LOC: H.ER 20:00
DX: F19.10 Other psychoactive substance abuse, uncomplicated (principal); E11.9 Type 2 diabetes mellitus without complications; N18.9 Chronic kidney disease, unspecified

== ENCOUNTER 2018-01-25 01:31 | Emergency (ER) | payer MEDICAID ==
--- NOTE | 2018-01-25 01:52 | ED PDOC ---
HPI: General Adult Time Seen by Provider: 01/25/18 01:44 Chief Complaint (Nursing): Substance Abuse Chief Complaint (Provider): Denies complaint History Per: Patient History/Exam Limitations: no limitations Additional Complaint(s): 32 yo female with history of PCP and marijuana brought in for drug abuse. Pt states she does not want to stay in ER. PT with clear speech and steady gait. Past Medical History Reviewed: Historical Data, Nursing Documentation, Vital Signs - Medical History PMH: Anxiety, Diabetes, Chronic Kidney Disease, Sexually Transmitted Disease Denies: Hepatitis, HIV, HTN, Seizures - Family History Family History: States: Unknown Family Hx - Living Arrangements Living Arrangements: With Family - Social History Current smoker - smoking cessation education provided: No - Immunization History Hx Tetanus Toxoid Vaccination: Yes - Home Medications Home Medications: Ambulatory Orders Medication Instructions Recorded Buspirone HCl 10 mg PO BID 03/19/14 Nitrofurantoin Macrocrystals 100 mg PO BID #9 cap 06/20/15 [Macrobid] Amoxicillin/Clavulanate [Augmentin 1 tab PO BID #14 tab 12/20/15 875 MG-125 MG] Azithromycin [Zithromax] 250 mg PO DAILY #6 tab 12/01/16 Ibuprofen [Motrin] 600 mg PO Q6 PRN #15 tab 12/01/16 Tobramycin 0.3% [Tobrex] 1 applic BOTHEYES Q8 #1 tube 01/04/17 Salicylic AC/Benzoyl Per/Vit E 1 each TP BID #1 combo..pkg 01/28/17 [Inova 4-1 Easy Pad] - Allergies Allergies/Adverse Reactions: Allergies Allergy/AdvReac Type Severity Reaction Status Date / Time acetaminophen [From Tylenol] Allergy seizures Verified 01/11/18 20:05 Review of Systems ROS Statement: Except As Marked, All Systems Reviewed And Found Negative Constitutional: Negative for: Fever, Chills Cardiovascular: Negative for: Chest Pain, Palpitations Gastrointestinal: Negative for: Nausea, Vomiting, Abdominal Pain Genitourinary Female: Negative for: Dysuria, Frequency Neurological: Negative for: Weakness, Numbness Physical Exam - Reviewed Nursing Documentation Reviewed: Yes Vital Signs Reviewed: Yes - Physical Exam Appears: Positive for: Well, Non-toxic, No Acute Distress Head Exam: Positive for: ATRAUMATIC, NORMAL INSPECTION, NORMOCEPHALIC Skin: Positive for: Normal Color, Warm, DRY Eye Exam: Positive for: Normal appearance ENT: Positive for: Normal ENT Inspection Neck: Positive for: Normal, Painless ROM Cardiovascular/Chest: Positive for: Tachycardia Respiratory: Negative for: Accessory Muscle Use, Respiratory Distress Back: Positive for: Normal Inspection Extremity: Positive for: Normal ROM Neurologic/Psych: Positive for: Alert, Oriented, Gait (Steady) Disposition - Clinical Impression Clinical Impression: Drug abuse - Patient ED Disposition Is Patient to be Admitted: No Counseled Patient/Family Regarding: Diagnosis, Need For Followup - Disposition Disposition: Routine/Home Disposition Time: 01:50 Condition: GOOD Instructions: Drug Abuse and Drug Addiction (DC) Forms: [employer] (Bulgarian)
[2018-01-25 02:19] VITALS: PULSE 110; RESP 18; TEMP 98.7; O2SAT 98
== END 2018-01-25 02:50 | disposition home or self-care (01) ==
LOC: H.ER 01:31
DX: F19.10 Other psychoactive substance abuse, uncomplicated (principal)